=== PATIENT | female | born 1930 | race Caucasian/White ===

== ENCOUNTER 2018-01-09 01:13 | Inpatient (IN) | payer OTHER, MEDICARE ==
[~2018-01-09] VITALS: Ht 154.9 cm; Wt 56.7 kg
[~2018-01-09 01:13] MED LIST: ATIVAN1 M1 PO; BIOTIN5 M2 PO; CO Q-10200 MG PO; DIALYVITE TABL1 EACH PO; FISH OIL 1,2001 EAC2 PO; OCUVITE EYE +1 EACH PO; PHOSLYRA667 MG/51 PO; PROCRIT2000 UNIT/ PUSH
--- NOTE | 2018-01-09 01:20 | ED MVC/FALL/TRAUMA COMPLAINT ---
History of Present Illness General Chief Complaint: Hip Injury Stated Complaint: BIBA RIGHT HIP PAIN Source: patient Exam Limitations: no limitations Vital Signs & Intake/Output Vital Signs & Intake/Output Vital Signs Date Time Temp Pulse Resp B/P B/P Pulse O2 O2 Flow FiO2 Mean Ox Delivery Rate 01/09 0122 98.2 90 18 164/88 97 Room Air Allergies Coded Allergies: sorbitol (UNKNOWN REACTION 01/09/18) Reconcile Medications Biotin 5 MG TABLET 1 CAP PO DAILY SUPPLEMENT (Reported) Calcium Acetate (Phoslo) 667 MG CAPSULE 2 CAP PO TID SUPPLEMENT (Reported) Coenzyme Q10/Vitamin E (Co-Q-10 200 MG-1 Iu) 1 SGL SGL 1 CAP PO DAILY SUPPLEMENT (Reported) Cu/Se/Vit A/Vit C/Vit E/Zinc (Ocuvite) 1 TAB TAB 1 TAB PO DAILY SUPPLEMENT ( Reported) Epoetin Michael (Procrit) 2,000 UNIT/1 ML VIAL 2,200 U PUSH Sat DIALYSIS ( Reported) FOLIC ACID/VIT BCOMP,C (Dialyvite Tablet) 1 MG-100 MG TABLET 1 CAP PO DAILY SUPPLEMENT (Reported) Lorazepam (Ativan) 1 MG TAB 1 TAB PO TID ANXIETY (Reported) OMEGA-3 FATTY ACIDS/FISH OIL (Fish Oil 1,200 MG Softgel) 360 MG-1,200 MG CAPSULE 1 CAP PO QPM SUPPLEMENT (Reported) Triage Nurses Notes Reviewed? yes Onset: Abrupt Duration: hour(s): Timing: recent history Severity: moderate Injuries/Fall Location: lower extremity Method of Injury: fall Loss of Consciousness: no loss of consciousness Modifying Factors: Worsens With: movement, palpation. Associated Symptoms: right hip pain HPI: 87 yo woman on hemodialysis presents after a fall with right hip pain approximately 4 hours prior to arrival. Her daughter shares, "We were helping her sit down and she just missed the chair and fell... landed on her right hip." Her family was able to carry her up the hill on a lounge chair. She was unable to ambulate and noted right hip pain, and so presented to the ED for further evaluation. Of note, she did not hit her head. She did not lose consciousness. She had no chest pain, shortness of breath, dyspnea, diaphoresis. She is otherwise well. Past History Travel History Traveled to [place] past 21 day No Medical History Any Pertinent Medical History? see below for history Renal: ESRD on HD Surgical History Surgical History: right maira catheter Psychosocial History What is your primary language Chinese Family History Hx Contributory? No Review of Systems Review of Systems Constitutional: Reports: no symptoms. Eyes: Reports: no symptoms. Ears, Nose, Throat, Mouth: Reports: no symptoms. Respiratory: Reports: no symptoms. Cardiovascular: Reports: no symptoms. Gastrointestinal/Abdominal: Reports: no symptoms. Genitourinary: Reports: no symptoms. Musculoskeletal: Reports: no symptoms. Skin: Reports: no symptoms. Neurological/Psychological: Reports: no symptoms. All Other Systems: Reviewed and Negative Physical Exam Physical Exam General Appearance: well developed/nourished, mild distress Head: atraumatic, normal appearance Eyes: Bilateral: normal appearance. Ears, Nose, Throat, Mouth: hearing grossly normal, moist mucous membrane Neck: normal inspection, supple, full range of motion Respiratory: normal breath sounds, chest non-tender, no respiratory distress, quiet respiration, lungs clear Cardiovascular: regular rate/rhythm Gastrointestinal: normal bowel sounds Extremities: right hip flexed and slightly externally rotated. 2+distal pulse. right knee with mild effusion without tenderness/deformity. Neurologic/Psych: no motor/sensory deficits, awake, alert, oriented x 3 Skin: intact, normal color, warm/dry Core Measures ACS in differential dx? No CVA/TIA Diagnosis No Sepsis Present: No Sepsis Focused Exam Completed? No Progress Differential Diagnosis: ext injury Plan of Care: Orders Procedure Date/time Status Nothing by Mouth 01/09 B Active Saline Lock 01/09 327 Active Misc Message 01/09 327 Active ED Holding Orders 01/09 327 Active Admit to inpatient 01/09 032 Active Vital Signs 01/09 032 Active Code Status 01/09 032 Active Lowery, Insertion/Removal/Asses 01/09 0248 Active CULTURE,URINE 01/09 0248 Active URINALYSIS 01/09 0248 Active TROPONIN LEVEL 01/09 012 Complete PARTIAL THROMBOPLASTIN TIME 01/09 121 Complete PROTHROMBIN TIME 01/09 121 Complete LIPASE 01/09 121 Complete HEPATIC FUNCTION PANEL 01/09 121 Complete CBC WITHOUT DIFFERENTIAL 01/09 121 Complete BASIC METABOLIC PANEL 01/09 121 Complete AMYLASE 01/09 012 Complete EKG 01/09 121 Active TYPE & SCREEN (NOT X-MATCH) 01/09 012 Complete Laboratory Tests 01/09/18 0215: Anion Gap 16, Estimated GFR 15 L, BUN/Creatinine Ratio 3.4 L, Glucose 135 H, Calcium 10.0, Total Bilirubin 0.5, Direct Bilirubin 0.3, AST 13 L, ALT 29, Alkaline Phosphatase 187 H, Troponin I < 0.01, Total Protein 6.2 L, Albumin 4.0, Amylase 72, Lipase 277, PT 11.7, INR 1.07, APTT 27, CBC w Diff MAN DIFF ORDERED, RBC 3.69 L, MCV 95.7, MCH 32.0 H, MCHC 33.4, RDW 14.4, MPV 8.4, Gran % 88.7 H, Lymphocytes % 5.6 L, Monocytes % 5.2, Eosinophils % 0.2, Basophils % 0.3, Absolute Granulocytes 15.5 H, Segmented Neutrophils 85 H, Band Neutrophils 1, Absolute Lymphocytes 1.0 L, Lymphocytes 8 L, Monocytes 4, Absolute Monocytes 0.9 H, Absolute Eosinophils 0, Basophils 2, Absolute Basophils 0, Platelet Estimate ADEQUATE, Polychromasia 1+, Poikilocytosis 1+, Ovalocytes 1+, Stomatocytes FEW, Dary Cells RARE, Elliptocytes FEW, Fld Total RBCs Counted 100 Microbiology 01/10 248 URINE ROUT: Urine Culture - ORD Diagnostic Imaging: Viewed by Me: Radiology Read. Discussed w/RAD: Radiology Read. Radiology Impression: PATIENT: HOLLIE DHILLON PRESENT AGE: 87 PATIENT ACCOUNT NO: [id number] : [birth year] LOCATION: [facility] ORDERING PHYSICIAN: Dalton Vila MD SERVICE DATE: 01/09/18 EXAM TYPE: RAD - XRY-KNEE COMPLETE RIGHT EXAMINATION: XR KNEE, RIGHT CLINICAL INFORMATION: Fall. Swelling. COMPARISON: None TECHNIQUE: 2 lateral views of the right knee. FINDINGS: Due to the right hip fracture knee positioning was limited to lateral projection. No evidence of fracture or joint effusion of right knee IMPRESSION: Limited study. No fracture of the right knee. DICTATED BY: Ildefonso Berg MD DATE/TIME DICTATED:01/09/18227 DRUG ENFORCEMENT AGENT:BLAIR DATE/TIME TRANSCRIBED:01/09/18227 CONFIDENTIAL, DO NOT COPY WITHOUT APPROPRIATE AUTHORIZATION. <Electronically signed in Other Vendor System> SIGNED BY: Ildefonso Berg MD 01/09/18233, PATIENT: HOLLIE DHILLON PRESENT AGE: 87 PATIENT ACCOUNT NO: [id number] : [birth year] LOCATION: ER ORDERING PHYSICIAN: Dalton Vila MD SERVICE DATE: 01/09/18 EXAM TYPE: RAD - XRY-HIP 2-3 VIEWS, RIGHT EXAMINATION: XR HIP, RIGHT CLINICAL INFORMATION: Pain. Fall. COMPARISON: None TECHNIQUE: Two views of the right hip. FINDINGS: There is a comminuted intratrochanteric fracture of the right hip. Fracture is angulated and mildly displaced. Femoral head remains seated in the acetabulum. Surgical clips seen in the right side of the abdomen. IMPRESSION: Comminuted intratrochanteric fracture of the right hip. DICTATED BY: Ildefonso Berg MD DATE/TIME DICTATED:01/09/18229 DRUG ENFORCEMENT AGENT:BLAIR DATE/TIME TRANSCRIBED:01/09/18229 CONFIDENTIAL, DO NOT COPY WITHOUT APPROPRIATE AUTHORIZATION. <Electronically signed in Other Vendor System> SIGNED BY: Ildefonso Berg MD 01/09/18234, PATIENT: HOLLIE DHILLON PRESENT AGE: 87 PATIENT ACCOUNT NO: [id number] : [birth year] LOCATION: [facility] ORDERING PHYSICIAN: Dalton Vila MD SERVICE DATE: 01/09/18 EXAM TYPE: RAD - XRY-PORTABLE CHEST XRAY EXAMINATION: XR PORTABLE CHEST CLINICAL INFORMATION: Chest pain COMPARISON: None TECHNIQUE: Portable frontal view of the chest was obtained. 1:43 AM FINDINGS: Central port catheter tip at the caval atrial junction. Heart size is enlarged. There is mild increased lung markings but no significant vascular congestion. No focal consolidation or pleural effusion. Orthopedic plate and screw at lower cervical spine IMPRESSION: No acute abnormality of the chest. DICTATED BY: Ildefonso Berg MD DATE/TIME DICTATED: 01/09/18230 DRUG ENFORCEMENT AGENT:BLAIR DATE/TIME TRANSCRIBED:01/09/18230 CONFIDENTIAL, DO NOT COPY WITHOUT APPROPRIATE AUTHORIZATION. <Electronically signed in Other Vendor System> SIGNED BY: Ildefonso Berg MD 01/09/18235 Initial ED EKG: SINUS TACH, NO ACUTE CHANGES Departure Departure Disposition: STILL A PATIENT Condition: Stable Clinical Impression Primary Impression: Closed right hip fracture Secondary Impressions: ESRD (end stage renal disease) on dialysis Referrals: Denisse Demarco MD (PCP/Family) Departure Forms: Customer Survey General Discharge Information Comments 01/09/18, 3:08am... discussed with dr. jhaveri... PA to evaluate. Admission Note Spoke With: Ermias Conway MD Documentation of Exam: Documentation of any treatments & extenuating circumstances including Concerns Regarding Discharge (functional status, medication knowledge or non-compliance, living conditions, etc.) that warrant an admission rather than observation: Pt with comminuted right hip fracture, renal failure on hemodialysis.... will require surgery after medical optimization. Critical Care Note Critical Care Note Critical Care Time: 30-74 min
[2018-01-09 02:28] LABS: ABSOLUTE BASOPHIL COUNT 0 /CUMM (0.0-0.2); ABSOLUTE EOSINOPHIL COUNT 0 /CUMM (0.0-0.7); ABSOLUTE GRANULOCYTE CT 15.5 /CUMM (1.4-6.5); ABSOLUTE MONOCYTE COUNT 0.9 /CUMM (0.10-0.60); BASOPHIL % 0.3 % (0.0-2.0); EOSINOPHIL % 0.2 % (0-5); GRANULOCYTE % 88.7 % (42.2-75.2); HEMATOCRIT 35.3 % (37-47); MEAN CORPUSCULAR HGB CONC 33.4 G/DL (33.0-37.0); MEAN CORPUSCULAR VOLUME 95.7 FL (81.0-99.0); MEAN PLATELET VOLUME 8.4 FL (7.4-10.4); PLATELET COUNT 259 /CUMM (130-400); RBC DISTRIBUTION WIDTH 14.4 % (11.5-14.5); RED BLOOD CELL CT 3.69 /CUMM (4.20-5.40); WHITE BLOOD CELL COUNT 17.5 /CUMM (4.8-10.8)
--- NOTE | 2018-01-09 02:34 | RADIOLOGY REPORT ---
EXAMINATION: XR KNEE, RIGHT CLINICAL INFORMATION: Fall. Swelling. COMPARISON: None TECHNIQUE: 2 lateral views of the right knee. FINDINGS: Due to the right hip fracture knee positioning was limited to lateral projection. No evidence of fracture or joint effusion of right knee IMPRESSION: Limited study. No fracture of the right knee.
--- NOTE | 2018-01-09 02:35 | RADIOLOGY REPORT ---
EXAMINATION: XR HIP, RIGHT CLINICAL INFORMATION: Pain. Fall. COMPARISON: None TECHNIQUE: Two views of the right hip. FINDINGS: There is a comminuted intratrochanteric fracture of the right hip. Fracture is angulated and mildly displaced. Femoral head remains seated in the acetabulum. Surgical clips seen in the right side of the abdomen. IMPRESSION: Comminuted intratrochanteric fracture of the right hip.
[2018-01-09 02:36] LABS: PT 11.7 SEC (9.4-12.5); PTT 27 SEC (25-37)
--- NOTE | 2018-01-09 02:36 | RADIOLOGY REPORT ---
EXAMINATION: XR PORTABLE CHEST CLINICAL INFORMATION: Chest pain COMPARISON: None TECHNIQUE: Portable frontal view of the chest was obtained. 1:43 AM FINDINGS: Central port catheter tip at the caval atrial junction. Heart size is enlarged. There is mild increased lung markings but no significant vascular congestion. No focal consolidation or pleural effusion. Orthopedic plate and screw at lower cervical spine IMPRESSION: No acute abnormality of the chest.
--- NOTE | 2018-01-09 04:28 | History & Physical ---
Yasmine MIRANDA,[facility] 01/09/18 0428: General Information and HPI MD Statement: I have seen and personally examined HOLLIE DHILLON and documented this H&P. The patient is a 87 year old F who presented with a patient stated chief complaint of [Fall]. Source of Information: patient, family Exam Limitations: no limitations History of Present Illness: Ms. Dhillon 77-year-old lady with past medical history significant for anxiety, asthma, colon cancer status post resection, diverticulitis, nephrectomy(unsure if R or L), arthritis and end-stage renal disease on dialysis (M, W, F) presents after a fall. Per the patient, she went to see the [employer] today, she was trying to sit on the bench but somehow missed it and fell backwards on her hips, mainly on the right side. She was able to Get up with help and walk afterwards but had significant right-sided hip pain. Denies any loss of consciousness or hitting her head. Denies any chest pain, palpitations, lightheadedness or dizziness before the fall. She had her dialysis done yesterday. Allergies/Medications Allergies: Coded Allergies: sorbitol (UNKNOWN REACTION 01/09/18) Past History Travel History Traveled to [place] past 21 day No Medical History Neurological: NONE EENT: NONE Cardiovascular: NONE Respiratory: asthma Gastrointestinal: diverticulitis Hepatic: NONE Renal: ESRD on HD Musculoskeletal: falls, osteoarthritis Psychiatric: anxiety Endocrine: NONE Blood Disorders: NONE Cancer(s): colon/rectal cancer Surgical History Surgical History: right maira catheter Past Family/Social History Psychosocial History Where do you live? Home ETOH Use: denies use Illicit Drug Use: denies illicit drug use Review of Systems Review of Systems Constitutional: Reports: no symptoms. EENTM: Reports: no symptoms. Cardiovascular: Reports: no symptoms. Respiratory: Reports: no symptoms. GI: Reports: no symptoms. Genitourinary: Reports: no symptoms. Musculoskeletal: Reports: joint pain. Skin: Reports: no symptoms. Neurological/Psychological: Reports: no symptoms. Hematologic/Endocrine: Reports: no symptoms. Immunologic/Allergic: Reports: no symptoms. All Other Systems: Reviewed and Negative Exam & Diagnostic Data Last 24 Hrs of Vital Signs/I&O Vital Signs Date Time Temp Pulse Resp B/P B/P Pulse O2 O2 Flow FiO2 Mean Ox Delivery Rate 01/09 0439 97.4 105 18 157/74 97 Room Air 01/09 0333 98.0 95 18 160/78 97 Room Air 01/09 0122 98.2 90 18 164/88 97 Room Air Intake & Output 01/09 0800 01/09 0000 01/08 1600 Intake Total 50 Output Total Balance 50 Intake, IV 50 Patient 114 lb Weight Weight Reported by Patient Measurement Method Physical Exam General Appearance Alert, Oriented X3, Cooperative, Mild Distress, Moderate Distress Skin No Rashes, No Breakdown, Bruises around the right elbow and right pepe HEENT Atraumatic, PERRLA, EOMI, dry mucous membranes Cardiovascular Regular Rate, Normal S1, Normal S2 Lungs Normal Air Movement Abdomen Normal Bowel Sounds, Soft, No Tenderness Extremities No Clubbing, No Cyanosis, trace pedal edema, right lower ext flexed and internally rotated, severe pain with movement Last 24 Hrs of Labs/Kvng: Laboratory Tests 01/09/18 0215: Anion Gap 16, Estimated GFR 15 L, BUN/Creatinine Ratio 3.4 L, Glucose 135 H, Calcium 10.0, Total Bilirubin 0.5, Direct Bilirubin 0.3, AST 13 L, ALT 29, Alkaline Phosphatase 187 H, Troponin I < 0.01, Total Protein 6.2 L, Albumin 4.0, Amylase 72, Lipase 277, PT 11.7, INR 1.07, APTT 27, CBC w Diff MAN DIFF ORDERED, RBC 3.69 L, MCV 95.7, MCH 32.0 H, MCHC 33.4, RDW 14.4, MPV 8.4, Gran % 88.7 H, Lymphocytes % 5.6 L, Monocytes % 5.2, Eosinophils % 0.2, Basophils % 0.3, Absolute Granulocytes 15.5 H, Segmented Neutrophils 85 H, Band Neutrophils 1, Absolute Lymphocytes 1.0 L, Lymphocytes 8 L, Monocytes 4, Absolute Monocytes 0.9 H, Absolute Eosinophils 0, Basophils 2, Absolute Basophils 0, Platelet Estimate ADEQUATE, Polychromasia 1+, Poikilocytosis 1+, Ovalocytes 1+, Stomatocytes FEW, Dary Cells RARE, Elliptocytes FEW, Fld Total RBCs Counted 100 Microbiology 01/09 0440 URINE ROUT: Urine Culture - RECD Diagnostic Data CXR Results IMPRESSION: No acute abnormality of the chest. Other Results XRY-HIP 2-3 VIEWS, RIGHT IMPRESSION: Comminuted intratrochanteric fracture of the right hip. XRY-KNEE COMPLETE RIGHT IMPRESSION: Limited study. No fracture of the right knee. Assessment/Plan Assessment: Ms. Dhillon 77-year-old lady with past medical history significant for anxiety, asthma, colon cancer status post resection, diverticulitis, nephrectomy(unsure if R or L), arthritis and end-stage renal disease on dialysis (M, W, F) presents after a fall. Problem List; 1. Intratrochanteric fracture of the right hip. 2. Leukocytosis - unknown source 3. ESRD on dialysis 4. HX of Athma and Anxiety. - Admit the patient to general medicine floor - RCRI risk score of 1(Cr. > 2) with 0.9% risk of major cardiac event. Patient is at low risk of any major adverse events for this intermediate risk surgery. - NPO for Surgery in am. - Orthopedic Consult. - Pain Managment. - UA Positive, Follow up urine Cx. - Repeat CBC in am. - Continue Home medications. DVT Prophylaxis; ALPS Patient is Full Code. As Ranked By This Provider Problem List: 1. Closed right hip fracture Core Measures/Misc (03/24) Acute Coronary Syndrome ACS Diagnosis: No Congestive Heart Failure Congestive Heart Failure Diagnosis No Cerebrovascular Accident CVA/TIA Diagnosis: No VTE (View Protocol) VTE Risk Factors Age>40 No Mechanical VTE Prophylaxis d/t N/A MechProphylax Ordered No VTE Pharm Prophylaxis d/t Surgical Contraindication Sepsis (View protocol) Sepsis Present: No If YES complete Sepsis Event Note If YES complete Sepsis Event Note [facility] 01/09[facility]18 0514: General Information and HPI MD Statement: I have seen and personally examined HOLLIE DHILLON and documented this H&P. The patient is a 87 year old F who presented with a patient stated chief complaint of [Fall/fracture]. Source of Information: patient, family Exam Limitations: no limitations Allergies/Medications Home Med list Biotin 5 MG TABLET 1 CAP PO DAILY SUPPLEMENT (Reported) Budesonide/Formoterol Fumarate (Symbicort 80-4.5 Mcg Inhaler) 80 MCG-4.5 MCG/ ACTUATION HFA.AER.AD 2 PUF INH BID asthma (Reported) Calcium Acetate (Phoslo) 667 MG CAPSULE 2 CAP PO TID SUPPLEMENT (Reported) Coenzyme Q10/Vitamin E (Co-Q-10 200 MG-1 Iu) 1 SGL SGL 1 CAP PO DAILY SUPPLEMENT (Reported) Cu/Se/Vit A/Vit C/Vit E/Zinc (Ocuvite) 1 TAB TAB 1 TAB PO DAILY SUPPLEMENT ( Reported) Epoetin Michael (Procrit) 2,000 UNIT/1 ML VIAL 2,200 U PUSH MON SAT DIALYSIS ( Reported) FOLIC ACID/VIT BCOMP,C (Dialyvite Tablet) 1 MG-100 MG TABLET 1 CAP PO DAILY SUPPLEMENT (Reported) Lorazepam (Ativan) 1 MG TAB 1 TAB PO TID ANXIETY (Reported) OMEGA-3 FATTY ACIDS/FISH OIL (Fish Oil 1,200 MG Softgel) 360 MG-1,200 MG CAPSULE 1 CAP PO QPM SUPPLEMENT (Reported) Past Family/Social History Employment History Employment Retired Exam & Diagnostic Data Last 24 Hrs of Vital Signs/I&O Vital Signs Date Time Temp Pulse Resp B/P B/P Pulse O2 O2 Flow FiO2 Mean Ox Delivery Rate 01/09 0439 97.4 105 18 157/74 97 Room Air 01/09 0333 98.0 95 18 160/78 97 Room Air 01/09 0122 98.2 90 18 164/88 97 Room Air Intake & Output 01/09 0800 07/ 0000 01/08 1600 Intake Total 50 Output Total Balance 50 Intake, IV 50 Patient 114 lb Weight Weight Reported by Patient Measurement Method Physical Exam General Appearance Alert, Oriented X3, Cooperative, No Acute Distress Skin No Rashes, No Breakdown HEENT Atraumatic, PERRLA, EOMI Cardiovascular Regular Rate, Normal S1, Normal S2 Lungs Clear to Auscultation, Normal Air Movement Abdomen Normal Bowel Sounds, Soft, No Tenderness Extremities No Clubbing, No Cyanosis, trace pedal edema, right lower ext flexed and internally rotated, severe pain with movement Last 24 Hrs of Labs/Kvng: Laboratory Tests 01/09/18 0215: Anion Gap 16, Estimated GFR 15 L, BUN/Creatinine Ratio 3.4 L, Glucose 135 H, Calcium 10.0, Total Bilirubin 0.5, Direct Bilirubin 0.3, AST 13 L, ALT 29, Alkaline Phosphatase 187 H, Troponin I < 0.01, Total Protein 6.2 L, Albumin 4.0, Amylase 72, Lipase 277, PT 11.7, INR 1.07, APTT 27, CBC w Diff MAN DIFF ORDERED, RBC 3.69 L, MCV 95.7, MCH 32.0 H, MCHC 33.4, RDW 14.4, MPV 8.4, Gran % 88.7 H, Lymphocytes % 5.6 L, Monocytes % 5.2, Eosinophils % 0.2, Basophils % 0.3, Absolute Granulocytes 15.5 H, Segmented Neutrophils 85 H, Band Neutrophils 1, Absolute Lymphocytes 1.0 L, Lymphocytes 8 L, Monocytes 4, Absolute Monocytes 0.9 H, Absolute Eosinophils 0, Basophils 2, Absolute Basophils 0, Platelet Estimate ADEQUATE, Polychromasia 1+, Poikilocytosis 1+, Ovalocytes 1+, Stomatocytes FEW, Dary Cells RARE, Elliptocytes FEW, Fld Total RBCs Counted 100 Microbiology 01/09 0440 URINE ROUT: Urine Culture - RECD Core Measures/Misc (03/24) Sepsis (View protocol) If YES complete Sepsis Event Note If YES complete Sepsis Event Note Attending MD Review Statement Attending Statement Attending MD Statement: examined this patient, discuss w/resident/PA/ENGINEERING LIBRARIAN, agreed w/resident/PA/ENGINEERING LIBRARIAN Attending Assessment/Plan: This patient is a 77-year-old lady with past medical history significant for anxiety, asthma, colon cancer status post resection, diverticulitis, nephrectomy (unsure if R or L), arthritis and end-stage renal disease on dialysis (M, W, F) presents after a fall. RCRI risk score of 1(Cr. > 2) with 0.9% risk of major cardiac event. Patient is at low risk of any major adverse events for this intermediate risk eurgery. NPO for ppossible Surgery in am. Pain Managment. Continue Home medications. Agree with Residents assesment and plan
--- NOTE | 2018-01-09 04:34 | Cons- Orthopedic ---
Mickie Yin 01/09/18 0434: General Information and HPI Consulting Request Date of Consult: 01/09/18 Requested By: Ermias Conway MD Reason for Consult: right hip fracture sp fall History of Present Illness: 87yoF presents to ED BIBA c/o right hip pain. Per pt, she was watching 01/08 fireworks [place] with family and fell while walking from the boat on the dock. She was unable to get up, but helped by family to get back into the house. Denies head injury/loc, no cp/palps/sob at time of fall. She does use a cane at baseline. She denies any complaints at this time other than right hip pain. Does note chronic right knee pain due to OA, though unchanged since fall. Of note, she is very functional and independent. She lives alone, goes up and down stairs in her home, and does not have any visiting help to her home other than occasonal family. She does not drive, instead uses uber and medical van to HD. PMHx includes ESRD on HD M/W/F, most recent HD yesterday. Allergies/Medications Allergies: Coded Allergies: sorbitol (UNKNOWN REACTION 01/09/18) Past History Medical History Respiratory: asthma Gastrointestinal: diverticulitis Renal: ESRD on HD Musculoskeletal: osteoarthritis Psychiatric: anxiety Cancer(s): colon/rectal cancer Surgical History Pertinent Surgical History: right maira catheter 2011, c-spine instrumentation, 2006 partial colectomy for colon ca 2002, nephrectomy at 43yo Psychosocial History Where Do You Live? Home Who Do You Live With? 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 Exam & Diagnostic Data Vital Signs and I&O Vital Signs Date Time Temp Pulse Resp B/P B/P Pulse O2 O2 Flow FiO2 Mean Ox Delivery Rate 01/09 439 97.4 105 18 157/74 97 Room Air 01/09 0333 98.0 95 18 160/78 97 Room Air 01/09 0122 98.2 90 18 164/88 97 Room Air Intake & Output 01/09 0801/09 0000 01/08 1600 01/08 0801/08 0000 01/07 1600 Intake Total 50 Output Total Balance 50 Intake, IV 50 Patient 114 lb Weight Weight Reported by Patient Measurement Method Physical Exam: GEN- NAD CARD-s1s2 RRR PULM- CTAB ABD- soft nt, easily reducible nontender ventral hernia superior to umbilicus EXT- r lateral hip ttp, skin intact, no ecchymosis, rle shortened and esternally rotated, r knee fixed in semiflexed position, some ecchymosis r pepe. palp pedal pulses, feel warm. bl toes with deformities. calves soft nt bl Last 24 Hours of Labs: Laboratory Tests 01/09 0215 Chemistry Sodium (137 - 145 mmol/L) 140 Potassium (3.5 - 5.1 mmol/L) 3.7 Chloride (98 - 107 mmol/L) 101 Carbon Dioxide (22 - 30 mmol/L) 23 Anion Gap (5 - 16) 16 BUN (7 - 17 mg/dL) 10 Creatinine (0.5 - 1.0 mg/dL) 2.9 H Estimated GFR (>60 ml/min) 15 L BUN/Creatinine Ratio (7 - 25 %) 3.4 L Glucose (65 - 99 mg/dL) 135 H Calcium (8.4 - 10.2 mg/dL) 10.0 Total Bilirubin (0.2 - 1.3 mg/dL) 0.5 Direct Bilirubin (< 0.4 mg/dL) 0.3 AST (14 - 36 U/L) 13 L ALT (9 - 52 U/L) 29 Alkaline Phosphatase (<127 U/L) 187 H Troponin I (< 0.11 ng/ml) < 0.01 Total Protein (6.3 - 8.2 g/dL) 6.2 L Albumin (3.5 - 5.0 g/dL) 4.0 Amylase (30 - 110 U/L) 72 Lipase (23 - 300 U/L) 277 Coagulation PT (9.4 - 12.5 SEC) 11.7 INR (0.90 - 1.19) 1.07 APTT (25 - 37 SEC) 27 Hematology CBC w Diff MAN DIFF ORDERED WBC (4.8 - 10.8 /CUMM) 17.5 H RBC (4.20 - 5.40 /CUMM) 3.69 L Hgb (12.0 - 16.0 G/DL) 11.8 L Hct (37 - 47 %) 35.3 L MCV (81.0 - 99.0 FL) 95.7 MCH (27.0 - 31.0 PG) 32.0 H MCHC (33.0 - 37.0 G/DL) 33.4 RDW (11.5 - 14.5 %) 14.4 Plt Count (130 - 400 /CUMM) 259 MPV (7.4 - 10.4 FL) 8.4 Gran % (42.2 - 75.2 %) 88.7 H Lymphocytes % (20.5 - 51.1 %) 5.6 L Monocytes % (1.7 - 9.3 %) 5.2 Eosinophils % (0 - 5 %) 0.2 Basophils % (0.0 - 2.0 %) 0.3 Absolute Granulocytes (1.4 - 6.5 /CUMM) 15.5 H Segmented Neutrophils (42.2 - 75.2 %) 85 H Band Neutrophils (0.0 - 5.0 %) 1 Absolute Lymphocytes (1.2 - 3.4 /CUMM) 1.0 L Lymphocytes (20.5 - 51.1 %) 8 L Monocytes (1.7 - 9.3 %) 4 Absolute Monocytes (0.10 - 0.60 /CUMM) 0.9 H Absolute Eosinophils (0.0 - 0.7 /CUMM) 0 Basophils (0.0 - 2.0 %) 2 Absolute Basophils (0.0 - 0.2 /CUMM) 0 Platelet Estimate (ADEQUATE) ADEQUATE Polychromasia 1+ Poikilocytosis 1+ Ovalocytes 1+ Stomatocytes FEW Dary Cells RARE Elliptocytes FEW Other Body Source Fld Total RBCs Counted (%) 100 Imaging Results: CXR: no acute abnormalities R Hip Xray: comminuted intratrochanteric fracture of the right hip. Fracture is angulated and mildly displaced. Femoral head remains seated in the acetabulum. R knee XRay: limited study. No evidence of fracture or joint effusion of right knee Assessment/Plan Assessment/Plan A- 87F with R comminuted intratrochanteric fracture, with multiple comorbidities including ESRD on HD, otherwise stable. P- requires surgical intervention when medically optimized/cleared. Keep npo. Dr. French to see pt Consult Acknowledgment - Thank you for your consult request. Manolo MIRANDA,Eldon Aguilar 01/09/182051: General Information and HPI Allergies/Medications Home Med List: Biotin 5 MG TABLET 1 TAB PO DAILY SUPPLEMENT (Reported) Budesonide/Formoterol Fumarate (Symbicort 80-4.5 Mcg Inhaler) 80 MCG-4.5 MCG/ ACTUATION HFA.AER.AD 2 PUF INH BID asthma (Reported) Calcium Acetate (Phoslyra) 667 MG (169 MG CALCIUM)/5 ML SOLUTION 2 CAP PO TID SUPPLEMENT (Reported) Epoetin Michael (Procrit) 2,000 UNIT/ML VIAL 2,200 UNITS PUSH MoWe DIALYSIS ( Reported) Folic Acid/Vit Bcomp,C (Dialyvite Tablet) 1 MG-100 MG TABLET 1 TAB PO DAILY VITAMIN SUPPORT (Reported) LORazepam (Ativan) 1 MG TAB 1 TAB PO TID ANXIETY (Reported) Mv-Mn/FA/Vit K1/Lycop/Lut/Zeax (Ocuvite Eye + Multi Tablet) 200 MCG-15 MCG-150 MCG-5 MG-1 MG TABLET 1 TAB PO DAILY EYE (Reported) [place]-3S/Dha/Epa/Fish Oil (Fish Oil 1,200 MG Softgel) 360-1,200MG CAPSULE 1 CAP PO QPM SUPPLEMENT (Reported) Ubidecarenone (Co Q-10) 200 MG CAPSULE 1 CAP PO DAILY SUPPLEMENT (Reported) Assessment/Plan Consult Acknowledgment - Thank you for your consult request. Attending MD Review Statement Attending Statement Attending MD Statement: examined this patient, discuss w/resident/PA/TUCKPOINTER, agreed w/resident/PA/TUCKPOINTER, discussed with family, reviewed EMR data (avail), reviewed images Attending Assessment/Plan: Sasha Bailey is an 87 year old white female with chronic renal failure on tiw hemodialysis who fell last night and landed on her right side resulting in a high subtrochanteric femur fracture with displacement. She is a cane ambulator at baseline who lives alone but has family nearby. I concur with the history and physical examination findings and agree with the assessment documented here by Mickie Nicholas PA-C. The patient will best be treated using closed reduction under fluoroscopic guidance and minimally invasive open internal fixation with short cephalomedullary implant fixation implant and as soon as she can be cleared by the primary admitting medicine team. She is at intermediate to high risk given her age and comorbid medical conditions particularly including renal failure and this will be reviewed with the patient and family when consent is obtained prior to surgery. Patient will remain NPO after admission since it appears quite possible that she can be cleared and that her surgery can be done on an expedited basis.
[2018-01-09] MEDS ORDERED: SYMBICORT 80-10.2 GM INH (04:50)
[2018-01-09 05:55] VITALS: BP 142/86
--- NOTE | 2018-01-09 07:36 | PN- Housestaff ---
See Addendum Subjective Follow-up For: hip fracture Complaints: sleepless Subjective: Patient was seen and examined at bedside, just returned from surgery, patient was irritable saying she would like to get some sleep and is tired of people constantly, and through the her door. Review of Systems Constitutional: Denies: chills, diaphoresis, fever. Cardiovascular: Denies: chest pain, palpitations. Respiratory: Denies: cough, short of breath. Objective Last 24 Hrs of Vital Signs/I&O Vital Signs Date Time Temp Pulse Resp B/P B/P Pulse O2 O2 Flow FiO2 Mean Ox Delivery Rate 01/09 1324 97.6 90 20 116/66 99 Nasal 2.0L Cannula 01/09 0555 97.6 108 20 142/86 98 Room Air 01/09 0439 97.4 105 18 157/74 97 Room Air 01/09 0333 98.0 95 18 160/78 97 Room Air 01/09 0122 98.2 90 18 164/88 97 Room Air Intake & Output 01/09 1600 01/09 0800 01/09 0000 Intake Total 130 50 Output Total 100 Balance 130 -50 Intake, IV 130 50 Intake, Oral 0 Number 0 Bowel Movements Output, 100 Emesis Patient 110 lb Weight Weight Bed scale Measurement Method Physical Exam General Appearance: Alert, Oriented X3, Mild Distress Skin: No Rashes, Eccymoses on right eblow HEENT: Atraumatic, PERRLA, EOMI Neck: Supple, No LAD Cardiovascular: Regular Rate, Normal S1, Normal S2, Port Cath present on right chest, no erythema, tenderness or warmth present Lungs: Clear to Auscultation, Normal Air Movement Abdomen: Normal Bowel Sounds, Soft, No Tenderness Extremities: No Edema, Normal Pulses, No Tenderness/Swelling, Right hip covered, tender to touch Assessment/Plan Assessment: Ms. Bailey 77-year-old lady with past medical history significant for anxiety, asthma, colon cancer status post resection, diverticulitis, nephrectomy, arthritis and end-stage renal disease on dialysis (M, W, F) presents after sustaining a fall on 01/08/18. Patient underwent R. Hip ORIF with Dr. French. #R. Hip fracture s/o ORIF POD #0 R. Hip Xray on 01/09/18 showing comminuted intratrochanteric fracture of the right hip. Fracture is angulated and mildly displaced plan: Underwent ORIF with Dr. French #Leukocytosis WBC = 17.5. Source unclear most likely related to fall, afebrile, does not take steroids, no signs of infectiong plan: - Repeat CBC - urine culture pending #ESRD patient is on dialysis M,W,F. Teaching Young = 2.9. GFR = 15, severe CKD plan: -nephrology consult -Dialysis on Saturday Problem List: 1. Closed right hip fracture Pain Ratin Pain Location: Right hip Pain Goal: Pain 4 or less Pain Plan: Tylenol Tomorrow's Labs & Rationales: CBC
[2018-01-09 13:24] VITALS: BP 116/66
--- NOTE | 2018-01-09 14:51 | RADIOLOGY REPORT ---
EXAMINATION: CR RIGHT HIP/INTRAOPERATIVE FLUOROSCOPY CLINICAL INDICATION: Right hip fracture repair. COMPARISON: Right hip films dated 01/09/2018. TECHNIQUE/FINDINGS: Fluoroscopic equipment was dedicated to the operating room for the performance of an intraoperative procedure. Several (70) spot films were acquired and are archived in PACS. Please refer to operative notes for procedural detail. FLUOROSCOPY TIME: 2.1 minutes. IMPRESSION: Administrative dictation for intraoperative fluoroscopy and image archiving in PACS. Please refer to operative notes for details.
--- NOTE | 2018-01-09 16:15 | PN- Orthopedic ---
Subjective Subjective: Post op check Awake, alert No complaints at this time No pain, denies nausea, has not been oob Objective Vital Signs and I&Os Vital Signs Date Time Temp Pulse Resp B/P B/P Pulse O2 O2 Flow FiO2 Mean Ox Delivery Rate 01/09 1324 97.6 90 20 116/66 99 Nasal 2.0L Cannula 01/09 0555 97.6 108 20 142/86 98 Room Air 01/09 0439 97.4 105 18 157/74 97 Room Air 01/09 0333 98.0 95 18 160/78 97 Room Air 01/09 0122 98.2 90 18 164/88 97 Room Air Intake & Output 01/09 1600 01/09 0800 01/09 0000 01/08 1600 01/08 0800 01/08 0000 Intake Total 50 Output Total 100 Balance -50 Intake, IV 50 Output, 100 Emesis Patient 110 lb Weight Weight Bed scale Measurement Method Physical Exam: General; alert and oriented times three Ext: warm, no edema, normosensate BLE, good 5/5 MAYNOR at bilateral feet, no calf tenderness, ALPS in place Wd: dressed, dry Assessment/Plan Assessment/Plan 87yo female s/p L hip ORIF PT - WBAT no anticoagulation needed from a surgical standpoint per Dr French, any anticoagulation is for other reasons per the medical team dc planning - likely will need STR ALPS
--- NOTE | 2018-01-09 17:39 | Cons- Nephrology ---
General Information and HPI Consulting Request Date of Consult: 01/09/18 Requested By: Gregor Myers MD Reason for Consult: Eval/managemen of ESRD Source of Information: patient, family, old records Exam Limitations: no limitations History of Present Illness: Pleasant 87-year-old female with a history of end-stage renal disease, for which is on hemodialysis on a Saturday schedule at the [facility]. Yesterday on January 08, she accidentally tripped while attempting to sit on a bench on the docks while watching the fireworks; she subsequently fell on her hips, and was diagnosed with a right hip fracture. She status post ORIF today . She was last dialyzed yesterday at the [facility]. Of note she lives by herself at home and [place] and has a son who lives in [place] who is with her at the bedside. She is dialyzed via an Mike catheter as she declined having an AV fistula created which was her choice. Allergies/Medications Allergies: Coded Allergies: sorbitol (UNKNOWN REACTION 01/09/18) Home Med List: Biotin 5 MG TABLET 1 TAB PO DAILY SUPPLEMENT (Reported) Budesonide/Formoterol Fumarate (Symbicort 80-4.5 Mcg Inhaler) 80 MCG-4.5 MCG/ ACTUATION HFA.AER.AD 2 PUF INH BID asthma (Reported) Calcium Acetate (Phoslyra) 667 MG (169 MG CALCIUM)/5 ML SOLUTION 2 CAP PO TID SUPPLEMENT (Reported) Epoetin Michael (Procrit) 2,000 UNIT/ML VIAL 2,200 UNITS PUSH MoWe DIALYSIS ( Reported) Folic Acid/Vit Bcomp,C (Dialyvite Tablet) 1 MG-100 MG TABLET 1 TAB PO DAILY VITAMIN SUPPORT (Reported) LORazepam (Ativan) 1 MG TAB 1 TAB PO TID ANXIETY (Reported) Mv-Mn/FA/Vit K1/Lycop/Lut/Zeax (Ocuvite Eye + Multi Tablet) 200 MCG-15 MCG-150 MCG-5 MG-1 MG TABLET 1 TAB PO DAILY EYE (Reported) [place]-3S/Dha/Epa/Fish Oil (Fish Oil 1,200 MG Softgel) 360-1,200MG CAPSULE 1 CAP PO QPM SUPPLEMENT (Reported) Ubidecarenone (Co Q-10) 200 MG CAPSULE 1 CAP PO DAILY SUPPLEMENT (Reported) Current Medications: Current Medications Sig/Nuris Start time Last Medication Dose Route Stop Time Status Admin Acetaminophen 1,000 MG .STK-MED ONE 01/09 1528 DC IV 01/09 1529 Acetaminophen 1,000 MG Q8 01/09 1400 AC 01/09 N/A 1 UNIT IV 01/10 1414 1445 Budesonide/ 2 PUF BID 01/09 0900 AC Formoterol Fumarate INH Calcium Acetate 1,334 MG WITH MEALS 01/09 0800 AC PO Fentanyl Citrate 250 MCG .STK-MED ONE 01/09 0750 DC IM 01/09 0751 Hydromorphone HCl 0.4 MG ONCE ONE 01/09 0600 DC 01/09 IV 01/09 0601 0556 Lorazepam 1 MG TID PRN 01/09 0445 AC 01/09 PO 0556 Morphine Sulfate 0 .STK-MED ONE 01/09 0451 DC .ROUTE Morphine Sulfate 2 MG Q4P PRN 01/09 0430 AC 01/09 IV 0458 Morphine Sulfate 2 MG ONCE ONE 01/09 0300 DC 01/09 IV 01/09 0301 0256 Morphine Sulfate 0 .STK-MED ONE 01/09 0248 DC .ROUTE Ondansetron HCl 4 MG .STK-MED ONE 01/09 1528 DC IV 01/09 1529 Ondansetron HCl 4 MG ONCE ONE 01/09 0615 CAN IV 01/09 0616 Pantoprazole Sodium 40 MG BID 01/09 0915 AC 01/09 IV 1444 Trimethobenzamide HCl 200 MG .STK-MED ONE 01/09 1529 DC IM 01/09 1530 Trimethobenzamide HCl 200 MG 4 TIMES/DAY PRN 01/09 0915 AC IM Trimethobenzamide HCl 200 MG ONCE ONE 01/09 0615 DC 01/09 IM 01/09 0616 0630 Review of Systems Review of Systems: Gen: neg fever, chills, nightsweats, wt loss Skin: neg rash, pruritus Eye: neg visual changes, diplopia ENT: neg hearing changes, rhinitus CV: neg CP, SOB, GARCIA, PND, orthopnea Pulm: neg cough, sputum, hemoptysis GI: neg nausea, vomiting, diarrhea, abdominal pain, hematemesis, BRBPR : neg dysuria, frequency, urgency, hematuria, foamy urine, nocturia Musculoskeletal: neg myalgias, arthralgias Denies hip pain currently Neuro: neg weakness, numbness Psych: neg depression, mental status changes Heme: neg bruising, easy bleeding, clots Past History Travel History Traveled to [place] past 21 day No Medical History Blood Transfusion Hx: No Neurological: NONE EENT: NONE Cardiovascular: HYPOTENSION Respiratory: asthma Gastrointestinal: diverticulitis Hepatic: NONE Renal: ESRD on HD Musculoskeletal: osteoarthritis Psychiatric: anxiety Endocrine: NONE Blood Disorders: NONE Cancer(s): colon/rectal cancer 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 Home Who Do You Live With? 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 Exam & Diagnostic Data Vital Signs and I&O Vital Signs Date Time Temp Pulse Resp B/P B/P Pulse O2 O2 Flow FiO2 Mean Ox Delivery Rate 01/09 1324 97.6 90 20 116/66 99 Nasal 2.0L Cannula 01/09 0555 97.6 108 20 142/86 98 Room Air 01/09 0439 97.4 105 18 157/74 97 Room Air 01/09 0333 98.0 95 18 160/78 97 Room Air 01/09 0122 98.2 90 18 164/88 97 Room Air Intake & Output 01/09 1600 05 0400 01/08 1600 01/08 0400 01/07 1600 01/07 0400 Intake Total 130 50 Output Total 100 Balance 30 50 Intake, IV 130 50 Intake, Oral 0 Number 0 Bowel Movements Output, 100 Emesis Patient 110 lb 114 lb Weight Weight Bed scale Reported by Patient Measurement Method Physical Exam: General: NAD, A+O x3. HEENT: NC/AT. No icterus. Moist mucosa Neck: negative for CHANO, JVD CV: RRR, no m/r/g Pulm: CTAB, no rales Abd: soft, NT/ND, negative renal bruits Lower Ext: neg edema or chronic venous changes Upper Ext: no AVFs or AVGs chest +MIKE cath Back: negative for CVA tenderness Neuro: neg tremor, asterixis Skin: no rash, jaundice : + mott catheter Results Pertinent Lab Results: Laboratory Tests 01/09 215 Chemistry Sodium (137 - 145 mmol/L) 140 Potassium (3.5 - 5.1 mmol/L) 3.7 Chloride (98 - 107 mmol/L) 101 Carbon Dioxide (22 - 30 mmol/L) 23 Anion Gap (5 - 16) 16 BUN (7 - 17 mg/dL) 10 Creatinine (0.5 - 1.0 mg/dL) 2.9 H Estimated GFR (>60 ml/min) 15 L BUN/Creatinine Ratio (7 - 25 %) 3.4 L Glucose (65 - 99 mg/dL) 135 H Calcium (8.4 - 10.2 mg/dL) 10.0 Total Bilirubin (0.2 - 1.3 mg/dL) 0.5 Direct Bilirubin (< 0.4 mg/dL) 0.3 AST (14 - 36 U/L) 13 L ALT (9 - 52 U/L) 29 Alkaline Phosphatase (<127 U/L) 187 H Troponin I (< 0.11 ng/ml) < 0.01 Total Protein (6.3 - 8.2 g/dL) 6.2 L Albumin (3.5 - 5.0 g/dL) 4.0 Amylase (30 - 110 U/L) 72 Lipase (23 - 300 U/L) 277 Coagulation PT (9.4 - 12.5 SEC) 11.7 INR (0.90 - 1.19) 1.07 APTT (25 - 37 SEC) 27 Hematology CBC w Diff MAN DIFF ORDERED WBC (4.8 - 10.8 /CUMM) 17.5 H RBC (4.20 - 5.40 /CUMM) 3.69 L Hgb (12.0 - 16.0 G/DL) 11.8 L Hct (37 - 47 %) 35.3 L MCV (81.0 - 99.0 FL) 95.7 MCH (27.0 - 31.0 PG) 32.0 H MCHC (33.0 - 37.0 G/DL) 33.4 RDW (11.5 - 14.5 %) 14.4 Plt Count (130 - 400 /CUMM) 259 MPV (7.4 - 10.4 FL) 8.4 Gran % (42.2 - 75.2 %) 88.7 H Lymphocytes % (20.5 - 51.1 %) 5.6 L Monocytes % (1.7 - 9.3 %) 5.2 Eosinophils % (0 - 5 %) 0.2 Basophils % (0.0 - 2.0 %) 0.3 Absolute Granulocytes (1.4 - 6.5 /CUMM) 15.5 H Segmented Neutrophils (42.2 - 75.2 %) 85 H Band Neutrophils (0.0 - 5.0 %) 1 Absolute Lymphocytes (1.2 - 3.4 /CUMM) 1.0 L Lymphocytes (20.5 - 51.1 %) 8 L Monocytes (1.7 - 9.3 %) 4 Absolute Monocytes (0.10 - 0.60 /CUMM) 0.9 H Absolute Eosinophils (0.0 - 0.7 /CUMM) 0 Basophils (0.0 - 2.0 %) 2 Absolute Basophils (0.0 - 0.2 /CUMM) 0 Platelet Estimate (ADEQUATE) ADEQUATE Polychromasia 1+ Poikilocytosis 1+ Ovalocytes 1+ Stomatocytes FEW Dary Cells RARE Elliptocytes FEW Other Body Source Fld Total RBCs Counted (%) 100 Assessment/Plan Assessment/Recommendations Assessment: End-stage renal disease: Stable from a renal standpoint. I will schedule her for routine dialysis tomorrow according to her Saturday schedule. She is dialyzed via an Mike catheter chronically which we will use for dialysis tomorrow. If the patient and her son elect for her to go to short-term rehabilitation in the [facility] area then she may need a temporary outpatient dialysis at the [facility]; would involve the case management. Recommendations: Dialysis scheduled for tomorrow in the hospital Would DC Mott catheter as she is oligoanuric Case management involvement tomorrow regarding discharge planning Thank you for the consult Kendrick Jang MD
[2018-01-09 19:39] LABS: ABSOLUTE BASOPHIL COUNT 0 /CUMM (0.0-0.2); ABSOLUTE EOSINOPHIL COUNT 0 /CUMM (0.0-0.7); ABSOLUTE GRANULOCYTE CT 10.9 /CUMM (1.4-6.5); ABSOLUTE LYMPH COUNT 0.6 /CUMM (1.2-3.4); ABSOLUTE MONOCYTE COUNT 0.7 /CUMM (0.10-0.60); BASOPHIL % 0.1 % (0.0-2.0); EOSINOPHIL % 0 % (0-5); HEMATOCRIT 30.5 % (37-47); MEAN CORPUSCULAR HGB 31.8 PG (27.0-31.0); MEAN CORPUSCULAR HGB CONC 33.3 G/DL (33.0-37.0); MEAN CORPUSCULAR VOLUME 95.3 FL (81.0-99.0); MEAN PLATELET VOLUME 8.8 FL (7.4-10.4); PLATELET COUNT 211 /CUMM (130-400); RBC DISTRIBUTION WIDTH 14.1 % (11.5-14.5); RED BLOOD CELL CT 3.21 /CUMM (4.20-5.40); WHITE BLOOD CELL COUNT 12.2 /CUMM (4.8-10.8)
[2018-01-09 19:43] LABS: GRANULOCYTE % 89.6 % (42.2-75.2)
--- NOTE | 2018-01-09 21:15 | Operative Report ---
Operative/Inv Procedure Report Surgery Date: 01/09/18 Name of Procedure: 1) Right Hip Region Intertrochanteric And High Subtrochanteric Fracture Open Reduction And Cephalomedullary Implant Internal Fixation (Manolo) 2) Right Hip Region Intraoperative Fluoroscopic Assessment Of Intertrochanteric And High Subtrochanteric Initial And Final Reduced Fracture Alignment And Stability As Well As Final Fracture Cephalomedullary (CM) Device Fixation (Manolo) Pre-Operative Diagnosis: Primary Surgically Treated Diagnoses: 1) Right Hip Moderately Displaced Intertrochanteric And High Subtrochanteric Fracture Post-Operative Diagnosis: Same as preoperative diagnosis list with the addition of standard postoperative symptomatic diagnoses Estimated Blood Loss: less than 50ml Surgeon/Electronics Repair Technician: EDI FRENCH MD - Primary Consulting Orthopaedic Surgeon Surgical Providers: Edi French M.D. - Orthopaedic Surgeon Anesthesia: general endotracheal tube Monitors: Standard general anesthesia and other perioperative monitoring was performed per anesthesia. Refer to anesthesia records for details. IV Fluids: Standard anesthesia perioperative fluid management was performed without requirement for additional or emergent fluid resuscitation. Refer to anesthesia records for details. Implants: Implants Placed: Right Hip And Proximal Femur Region Implants: [place] Gamma 3 Cephalomedullary Titanium Alloy Fracture Fixation System: Gamma 3 System Short Cephalomedullary Nail 11 mm diameter x 180 mm length x 130 degree cervicodiaphyseal angle cephalomedullary nail Gamma 3 System 10.5 mm x 100 mm Cepalad Fixation Lag Screw Gamma 3 System 5.0 mm x 35 mm Fully Threaded Distal Nail Proximal Round Transfixion Hole Bicortical Locking Screw Graft Placed: None Urine Output: Refer to anesthesia records for details. Drains: None Specimens: None Complications: None Operative/Procedure Note Note: Preoperative Holding Area Assessment/Preparation: The patient was evaluated in the preoperative holding area prior to surgery with no clinical changes or contraindications to surgical intervention documented compared to the stable postinjury and preoperative baseline deficits localized to the right hip and proximal lower extremity related to her high subtrochanteric fracture as documented on preoperative medical admission and orthopaedic consultation general medical, neurovascular and musculoskeletal clearance evaluations. Evaluation of her right hip and, to a lesser degree, the rest of her right lower extremity range of motion and other neuromusculoskeletal functions were obviously partially limited due to pain, instability and potential displacement of her fracture. The surgical plan and site were confirmed with the patient and preoperative paperwork was finalized. The region of the intended surgical site was cleansed, prepped and marked per protocol. The primary surgeon, anesthesia care team members, and operating room staff confirmed the patient identity, surgical procedure, and operative site as well as other clinical details with the patient in an initial documented preoperative confirmation (awake time out) prior to the administration of sedation or anesthesia. Surgical Procedure: The procedure was performed by Dr. French who was present and served as the primary surgeon for all critical intraoperative and perioperative decisions and interventions. Set-Up/Positioning/Exposure - The patient was brought to the operating room in stable condition and underwent uncomplicated induction of general anesthesia, intubation and placement of all appropriate monitors, lines, tubes and catheters without difficulty. Antibiotic administration (Ancef 2 grams IV based on patient body mass) was performed for surgical prophylaxis per orthopaedic surgical open internal fixation fracture care operative protocols and was completed at least 30 and less than 60 minutes prior to making an incision. The patient was positioned supine on the operating traction table in standard fashion for a right high subtrochanteric hip fracture closed reduction and minimally invasive open cephalomedullary nail internal fixation taking care to protect and stabilize the hip and lower extremity during transfer, abduct the left arm on a well padded arm board and adduct the right arm over the torso on a pillow so as to avoid positions of nerve stretch with all pressure points carefully padded. Fracture reduction was achieved with standard positioning and traction. This optimized alignment was documented on preincision intraoperative AP, lateral and oblique fluoroscopic spot views. No other change in fracture alignment, fracture fragment position or orientation was noted compared to preoperative images. The surgeon, anesthesia care team, and operating room staff again documented the patient identity, surgical procedure, and operative site as well as other clinical details in a final documented confirmation (final time out) prior to beginning the procedure. Exposure - Sterile prep and drape were performed using standard technique with DuraPrep and an Ioban antimicrobial incise curtain drape. Reference lines for the fracture, the tip of the greater trochanter, the femoral neck and shaft as well as the cephalad lag screw entry point at the lateral flare of the proximal femur were drawn with a marking pen along a radiopaque marker placed on the skin and projected over these structures on AP, lateral and oblique fluoroscopic views. The extent of the primary proximal incision for nail insertion was then marked and this linear incision was infiltrated with local anesthetic and made longitudinally extending proximally from the tip of the greater trochanter for approximately 5 cm using a #10 scalpel blade. Hemostasis was achieved using Bovie electrocautery beginning with the skin edges of the incision and continuing throughout the procedure (including additional more distal incisions described below) where necessary with settings appropriate to each progressive tissue level. The dissection was carried down through the subcutaneous layer and the fascia was divided longitudinally in line with and throughout the length of the small proximal skin incision using Metzenbaum scissors with a blunt spreading dissection technique. Further subfascial Metzenbaum and digital blunt dissection was carried down to the superior cortical margin of the tip of the greater trochanter of the femur. Each successive layer was dissected slightly more distal than the one superficial to it taking an overall inferomedial approach to match the intended intramedullary guidewire and nail trajectory along the angle of the femoral shaft. A speculum-type soft tissue protector was placed through the dissected soft tissue layers down to the intended greater trochanteric cortical entry point so as to prevent muscular injury during drilling of the entry site or placement of the guide-wire and nail. A threaded guidepin was advanced along this dissected path to the superior tip of the greater trochanter and confirmed to be at the optimal nail entry site just lateral to the most superior prominence of the greater trochanter on AP fluoroscopic view and just posterior to the greater trochanteric midpoint on the lateral view. Once the optimal entry point was confirmed, the guidepin was advanced through the cortex at that point and into the intertrochanteric region using a drill taking care to maintain optimal trajectory parallel to the intramedullary canal and avoid contact with or penetration beyond the medial femoral cortex. Optimal position of the guidepin was confirmed on orthogonal fluoroscopic views and the cannulated drill for the proximal nail entry site specific to this instrumentation design was passed over the guidepin and used to drill the proximal opening down to the intertrochanteric level. Care was again taken to avoid cortical fracture or displacement extending from the circular entry site, maintain optimal trajectory parallel to the intramedullary canal and avoid contact with or penetration beyond the medial femoral cortex either at the high subtrochanteric fracture site or in the more distal intact subtrochanteric medial cortical region. Minimally Invasive Open Cephalomedullary Nail Internal Fixation - With the fracture reduced and the nail entry site prepared at the tip of the greater trochanter, a short Gamma-3 cephalomedulllary nail measuring 11 mm in diameter and 180 mm in length with a 130 degree cephalomedullary angle was selected and attached to the impaction apparatus. The nail was advanced under fluoroscopic guidance to a depth and with proper rotation so as to optimize placement of the cephalic ("head-neck") screw in standard position for proximal fixation (inferomedial head and neck) as noted above. During the final phase of nail implantation the lower extremity traction was partially released to allow narrowing of the fracture gap and partial compression across the fracture during final nail impaction. In this final position, the nail was confirmed to be of optimal length with the proximal end only slightly above the tip of the greater trochanter and the distal end in the upper diaphyseal region. The fracture was found to be stable, well aligned and reduced once the nail was fully impacted. The proximal fixation guidance arm was attached and the 130 degree guide hole was selected. Rotation of the nail was optimized on the oblique lateral fluoroscopic view matching the patient's normal reduced head-neck angle and the drill sleeve was advanced to the level of the skin and used to edi the incision for proximal guidepin and screw placement. A small 5 mm lateral thigh incision was made at that point using a #10 scalpel blade. The dissection was carried down through the subcutaneous layer and the fascia was divided longitudinally throughout the length of the small incision using Metzenbaum scissors with a blunt spreading dissection technique. Further subfascial Metzenbaum blunt dissection was carried down to the lateral cortical surface of the femur. Each successive layer was dissected slightly more proximally than the one superficial to it taking an overall superomedial approach to match the intended guidepin and lag screw trajectory along the angle of the femoral neck. The drill sleeve was advanced through this dissected path down to the lateral femoral cortex at the flare of the proximal femur. The nail was impacted slightly to optimize the entry site for the proximal fixation screw. A partially threaded guide pin was then advanced through the drill sleeve down to the lateral femoral cortex where the longitudinal level of the guide-pin and subsequent cannulated lag screw entry point was confirmed to be optimal for proximal fixation screw placement just inferomedial to the central axis of the neck and head of the femur on AP fluoroscopic view. The pin was then advanced into the central portion of the femoral head using a drill while checking trajectory and length on orthogonal C-arm views to insure straight linear pin insertion without bending and placement just inferior to the central axis of the femoral neck and head for optimal proximal osseous fixation. C-arm views were also checked to insure that the depths of the guide-pin tip was approximately 5 mm below the chondral surface of the joint. The slotted depth gauge was used to measure the appropriate screw length from the lateral femoral cortex per its subtraction measurement design. No significant gap was noted between the drill sleeve (used for this subtraction measurement) and the femoral cortex therefore no adjustment was necessary to the measurement made above. The cannulated step-cut cortical entry hole drill bit was used to drill the proximal path for the cannulated cephalad screw with AP C-arm views monitoring the depth and trajectory of the drill bit and guide pin to insure maintenance of inferomedial path in the femoral neck and head, drill tip depth through the lateral femoral cortical surface to approximately 1 cm below the chondral surface without binding or advancement of the guide-pin toward the hip joint surface. Based on the previously described guidepin depth measurement, a 10.5 mm diameter x 100 mm length proximal fixation cannulated screw was selected and advanced over the guidepin, through the lateral femoral cortical opening created by the cannulated step-cut drill, and into the femoral neck and head with excellent insertional and final fixation torque (particularly considering the patient's age, gender and intra-operative radiologic findings suggestive of osteopenia). Optimal placement and final position were documented with AP and lateral fluoroscopic views to insure that the proper depth was achieved with the threaded fixation end of the screw at approximately 1 cm below the chondral surface of the joint and with the "head" end of the screw projecting only slightly past the lateral femoral cortex of the femur for optimal circumferential fixation within the lateral femoral cortical drill hole. This position provided optimal fracture stabilization while also allowing for controlled interfragmentary lag effect. Care was taken to avoid any rotation of the head-neck fragment during proximal interfragmentary lag screw insertion. Fracture line and fracture fragment alignment, orientation and configuration were closely observed and confirmed to be optimal, unchanged and without fragment rotation, fracture line widening or joint surface penetration throughout the process of guide-pin placement, drilling and final screw fixation. With proximal fixation achieved, attention was turned to the distal interlocking fixation. Lower extremity and fracture rotation were adjusted such that the fracture was optimally aligned while the rotation angle between the foot and the fluoroscopic axis of the femoral neck generally matched the normal version of the hip. Once near-anatomic rotation was achieved, traction was released and the leg gently longitudinally impacted so that the fracture was optimally compressed. The Gamma nail aiming arm rotation setting was adjusted for placement of the distal transfixion screw in the dynamic position and the modular drill sleeve for the distal drill and screw was advanced through the appropriate guide hole in the aiming arm to the level of the skin. The cutaneous point of contact of the sleeve was marked and a small 5 mm lateral thigh incision was made at that point using a #10 scalpel blade. The dissection was carried down through the subcutaneous layer and the fascia was divided longitudinally throughout the length of the small incision using Metzenbaum scissors with a blunt spreading longitudinal dissection technique in line with the fascial and muscle fibers. Further subfascial Metzenbaum blunt dissection was carried down to the lateral cortical surface of the femur with the path alignment orthogonal to the femur matching the intended transfixion screw trajectory. The drill sleeve was advanced through this dissected path down to the lateral femoral cortex at the upper diaphyseal level of the femur. A drill was then advanced through the sleeve down to the lateral femoral cortex and a bicortical transfixion screw hole was fashioned orthogonal to and through the distal end ( "dynamic position") of the oval distal nail fixation hole using standard technique. The drill sleeve was confirmed fluoroscopically to be directly contacting the lateral femoral cortex for optimal measurement accuracy and the screw length was measured from markings on the drill bit at the outermost level of the drill sleeve per system design. The drill bit was then removed and a 5 mm diameter x 35 mm length fully threaded transfixion screw was placed at the drilled site with excellent insertional and final fixation torque (consistent with solid bicortical capture). Final optimal position of all hardware, reduction of the fracture line and alignment of all fracture fragments was confirmed on multiaxial fluoroscopic images. Finally, the leg was rotated under fluoroscopic imaging to document stable fracture fixation and coplanar singular fracture fragment rotation without any displacement across the fracture line on dynamic radiographic evaluation and without screw penetration too close to the femoral articular surface on multiple angle projections. Final fluoroscopic images were saved and uploaded to the [facility] Radiology PACS system prior to closure per Radiology Department protocol. Closure/Recovery - The surgical sites were thoroughly irrigated and hemostasis was carefully achieved prior to closure. Initial counts were correct. The edges of the tensor and vastus lateralis fascia were reapproximated using simple #2-0 Vicryl sutures with a few interrupted sutures to close the fascial layer in the uppermost surgical site and single sutures at each of the two lower screw placement surgical sites. The deep and superficial subcutaneous closure was achieved with #2-0 dyed and #3-0 undyed Vicryl respectively using an inverted, interrupted technique. The cutaneous layer was closed using asa with the skin edges everted. A standard, sterile Xeroform, fluff 6x6 gauze and ABD pad dressing was placed with good surgical site coverage and was held in place with foam tape taking care to avoid tension on the skin. All final counts were correct prior to removing the drapes. The foot section of the table was reattached and the patient's lower extremities were removed from the traction table attachments and returned to their neutral resting positions. The postoperative lower extremity alignment was more symmetrical than had been noted preoperatively. Bilateral pulses and capillary refill were confirmed to be normal and similar to preoperative status. The LMA was removed without difficulty and the patient was transferred to the hospital bed in the supine position taking care to support the pelvis, hips and lower extremities in the neutral position during transfer. Recovery Room Assessment: The patient was transported to the recovery room in stable condition where gross neurological examination showed no deficits on initial recovery from anesthesia. Gentle log roll of the operative leg was not associated with the same discomfort that she had reported preoperatively although there was still some expected discomfort consistent with her injury, fracture and surgery. She will follow the usual postoperative protocol for minimally invasive open reduction and short cephalomedullary nail internal fixation of displaced angulated but ultimately near-anatomically reduced, stable and well fixed high subtrochanteric hip and proximal femoral region fracture. This will include early mobilization, supervised transfers and ambulation with progressive protected (walker-assisted) weight-bearing as tolerated, and discharge planning in preparation for transfer to inpatient rehabilitation program as patient is an excellent short-term rehabilitation candidate by orthopaedic criterion. Discharge Disposition: PACU CC: Manolo MIRANDA,Edi Aguilar
[2018-01-09 22:10] VITALS: BP 110/60
[2018-01-10 06:06] VITALS: BP 110/60
--- NOTE | 2018-01-10 06:30 | PN- Housestaff ---
See Addendum Subjective Follow-up For: R. Hip fracture Complaints: pain scale (0-10) Subjective: Patient was seen and examined at bed side. No acute events overnight. Patient has not had any more episodes of emesis since before surgery. Patient had a light dinner, which she tolerated well. Patient is having some pain from the surgical site rates its a 8/10, but improves to 2/10 with tylenol and morphine. Patient denies N/V, fever, SOB, weakness. Review of Systems Constitutional: Denies: chills, diaphoresis, fever. EENTM: Denies: blurred vision. Cardiovascular: Denies: chest pain, palpitations. Respiratory: Denies: cough, short of breath. Gastrointestinal: Denies: abdominal pain, constipation, diarrhea, nausea, vomiting. Objective Last 24 Hrs of Vital Signs/I&O Vital Signs Date Time Temp Pulse Resp B/P B/P Pulse O2 O2 Flow FiO2 Mean Ox Delivery Rate 01/10 0750 Room Air 01/10 0606 98.2 93 16 110/60 96 Room Air / 2210 98.7 95 18 110/60 95 07/05 1324 97.6 90 20 116/66 99 Nasal 2.0L Cannula Intake & Output 01/10 1600 /06 0800 07/06 0000 Intake Total 300 220 Output Total 0 10 Balance 300 210 Intake, IV 100 120 Intake, Oral 200 100 Number 0 Bowel Movements Output, Urine 0 10 Physical Exam General Appearance: Alert, Oriented X3, Cooperative Skin: No Rashes, Dialysis port cath. present on right chest, currently wrapped, HEENT: Atraumatic, PERRLA, EOMI Neck: Supple, No LAD Cardiovascular: Regular Rate, Normal S1, Normal S2 Lungs: Clear to Auscultation, Normal Air Movement Abdomen: Normal Bowel Sounds, Soft, No Tenderness Extremities: No Edema, Normal Pulses, No Tenderness/Swelling, Right hip covered in dressing, surgical site tender to palpation, no erythema, warmth or discharge present. Assessment/Plan Assessment: Ms. Bailey 77-year-old lady with past medical history significant for anxiety, asthma, colon cancer status post resection, diverticulitis, nephrectomy, arthritis and end-stage renal disease on dialysis (M, W, F) presents after sustaining a fall on 01/08/18. Patient underwent R. Hip ORIF with Dr. French. Patient underwent dialysis today. #R. Hip fracture s/o ORIF POD #1 R. Hip Xray on 01/09/18 showing comminuted intratrochanteric fracture of the right hip. Fracture is angulated and mildly displaced plan: - tylenol 1000 mg and Tramadol 50mg PO - underwent inital PT eval. - Underwent ORIF with Dr. French #ESRD patient is on dialysis M,W,F. International Account Manager = 2.9. GFR = 15, severe CKD plan: - completed dialysis today - followed by nephrology #Leukocytosis - resolved WBC = 17.5. Source unclear most likely related to fall, afebrile, does not take steroids, no signs of infection. Urine culture has no growth after 1 day. DVT PPx: None, per ortho rec's diet: Regular Code: Full code Problem List: 1. Closed right hip fracture Pain Ratin Pain Location: R. hip Pain Goal: Pain 4 or less Pain Plan: Tylenol and Tramadol Tomorrow's Labs & Rationales: None DVT/Prophylaxis: None, Ortho recs
--- NOTE | 2018-01-10 07:27 | PN- Orthopedic ---
See Addendum Subjective Subjective: Patient reports pain is controlled. Lowery was removed. She is tolerating a diet, but reports she does not have an appetite. She states she has note ambulated with PT yet. She offers no other complaints. Objective Vital Signs and I&Os Vital Signs Date Time Temp Pulse Resp B/P B/P Pulse O2 O2 Flow FiO2 Mean Ox Delivery Rate 01/10 0606 98.2 93 16 110/60 96 Room Air 01/09 2210 98.7 95 18 110/60 95 / 1324 97.6 90 20 116/66 99 Nasal 2.0L Cannula Intake & Output 01/10 0801/10 0000 01/09 1600 01/09 0801/09 0000 01/08 1600 Intake Total 300 220 130 50 Output Total 0 10 100 Balance 300 210 130 -50 Intake, IV 100 120 130 50 Intake, Oral 200 100 0 Number 0 0 Bowel Movements Output, 100 Emesis Output, Urine 0 10 Patient 110 lb Weight Weight Bed scale Measurement Method Physical Exam: Gen - resting comfortably accompained by her son in nad Cardiac - S1S2 noted Ext - R thigh dressing c/d/i, compartment soft, moves all extremities, motor and sensory intact, alps in place, no edema or calf tenderness Current Medications: Current Medications Sig/Nuris Start time Last Medication Dose Route Stop Time Status Admin Acetaminophen 1,000 MG .STK-MED ONE 01/09 1528 DC IV 01/09 1529 Acetaminophen 1,000 MG Q8 01/09 1400 AC 01/10 N/A 1 UNIT IV 01/10 1414 0601 Budesonide/ 2 PUF BID 01/09 0900 AC Formoterol Fumarate INH Calcium Acetate 1,334 MG WITH MEALS 01/09 0800 AC 01/09 PO 1808 Epoetin Michael 2,000 UNIT MoWeFr PRN 01/10 0715 AC IV Famotidine 20 MG .STK-MED ONE 01/09 0957 DC IV 01/09 0958 Famotidine 20 MG .STK-MED ONE 01/09 0955 DC IV 01/09 0956 Fentanyl Citrate 250 MCG .STK-MED ONE 01/09 0750 DC IM 01/09 0751 Lorazepam 1 MG TID PRN 01/09 0445 AC 01/09 PO 0556 Morphine Sulfate 2 MG Q4P PRN 01/09 0430 AC 01/10 IV 0448 Ondansetron HCl 4 MG .STK-MED ONE 01/09 1528 DC IV 01/09 1529 Pantoprazole Sodium 40 MG BID 01/09 915 AC 01/09 IV 2108 Paricalcitol 2.5 MCG MoWeFr PRN 01/10 715 AC IV Trimethobenzamide HCl 200 MG .STK-MED ONE 01/09 1529 DC IM 01/09 1530 Trimethobenzamide HCl 200 MG 4 TIMES/DAY PRN 01/09 915 AC IM Results Last 48 Hours of Labs: Laboratory Tests 01/09 01/09 01/09 1920 0600 0500 Chemistry Sodium Cancelled Potassium Cancelled Chloride Cancelled Carbon Dioxide Cancelled Anion Gap Cancelled BUN Cancelled Creatinine Cancelled BUN/Creatinine Ratio Cancelled Hematology CBC w Diff NO MAN DIFF REQ Cancelled WBC (4.8 - 10.8 /CUMM) 12.2 H Cancelled RBC (4.20 - 5.40 /CUMM) 3.21 L Cancelled Hgb (12.0 - 16.0 G/DL) 10.2 L Cancelled Hct (37 - 47 %) 30.5 L Cancelled MCV (81.0 - 99.0 FL) 95.3 Cancelled MCH (27.0 - 31.0 PG) 31.8 H Cancelled MCHC (33.0 - 37.0 G/DL) 33.3 Cancelled RDW (11.5 - 14.5 %) 14.1 Cancelled Plt Count (130 - 400 /CUMM) 211 Cancelled MPV (7.4 - 10.4 FL) 8.8 Cancelled Gran % (42.2 - 75.2 %) 89.6 H Lymphocytes % (20.5 - 51.1 %) 4.9 L Monocytes % (1.7 - 9.3 %) 5.4 Eosinophils % (0 - 5 %) 0 Basophils % (0.0 - 2.0 %) 0.1 Absolute Granulocytes (1.4 - 6.5 /CUMM) 10.9 H Absolute Lymphocytes (1.2 - 3.4 /CUMM) 0.6 L Absolute Monocytes (0.10 - 0.60 /CUMM) 0.7 H Absolute Eosinophils (0.0 - 0.7 /CUMM) 0 Absolute Basophils (0.0 - 0.2 /CUMM) 0 07/05 0215 Chemistry Sodium (137 - 145 mmol/L) 140 Potassium (3.5 - 5.1 mmol/L) 3.7 Chloride (98 - 107 mmol/L) 101 Carbon Dioxide (22 - 30 mmol/L) 23 Anion Gap (5 - 16) 16 BUN (7 - 17 mg/dL) 10 Creatinine (0.5 - 1.0 mg/dL) 2.9 H Estimated GFR (>60 ml/min) 15 L BUN/Creatinine Ratio (7 - 25 %) 3.4 L Glucose (65 - 99 mg/dL) 135 H Calcium (8.4 - 10.2 mg/dL) 10.0 Total Bilirubin (0.2 - 1.3 mg/dL) 0.5 Direct Bilirubin (< 0.4 mg/dL) 0.3 AST (14 - 36 U/L) 13 L ALT (9 - 52 U/L) 29 Alkaline Phosphatase (<127 U/L) 187 H Troponin I (< 0.11 ng/ml) < 0.01 Total Protein (6.3 - 8.2 g/dL) 6.2 L Albumin (3.5 - 5.0 g/dL) 4.0 Amylase (30 - 110 U/L) 72 Lipase (23 - 300 U/L) 277 Coagulation PT (9.4 - 12.5 SEC) 11.7 INR (0.90 - 1.19) 1.07 APTT (25 - 37 SEC) 27 Hematology CBC w Diff MAN DIFF ORDERED WBC (4.8 - 10.8 /CUMM) 17.5 H RBC (4.20 - 5.40 /CUMM) 3.69 L Hgb (12.0 - 16.0 G/DL) 11.8 L Hct (37 - 47 %) 35.3 L MCV (81.0 - 99.0 FL) 95.7 MCH (27.0 - 31.0 PG) 32.0 H MCHC (33.0 - 37.0 G/DL) 33.4 RDW (11.5 - 14.5 %) 14.4 Plt Count (130 - 400 /CUMM) 259 MPV (7.4 - 10.4 FL) 8.4 Gran % (42.2 - 75.2 %) 88.7 H Lymphocytes % (20.5 - 51.1 %) 5.6 L Monocytes % (1.7 - 9.3 %) 5.2 Eosinophils % (0 - 5 %) 0.2 Basophils % (0.0 - 2.0 %) 0.3 Absolute Granulocytes (1.4 - 6.5 /CUMM) 15.5 H Segmented Neutrophils (42.2 - 75.2 %) 85 H Band Neutrophils (0.0 - 5.0 %) 1 Absolute Lymphocytes (1.2 - 3.4 /CUMM) 1.0 L Lymphocytes (20.5 - 51.1 %) 8 L Monocytes (1.7 - 9.3 %) 4 Absolute Monocytes (0.10 - 0.60 /CUMM) 0.9 H Absolute Eosinophils (0.0 - 0.7 /CUMM) 0 Basophils (0.0 - 2.0 %) 2 Absolute Basophils (0.0 - 0.2 /CUMM) 0 Platelet Estimate (ADEQUATE) ADEQUATE Polychromasia 1+ Poikilocytosis 1+ Ovalocytes 1+ Stomatocytes FEW [place] Cells RARE Elliptocytes FEW Other Body Source Fld Total RBCs Counted (%) 100 Assessment/Plan Assessment/Plan 87 F POD 1 s/p R hip ORIF, recovering well, awaiting PT eval PT eval, WBAT Transition to oral analgesics No anticoagulation needed from surgical standpoint per Dr. French, any anticoag is for other reasons per medicine F/u labs Dressing change POD2 Will d/w Dr. French
[2018-01-10 09:03] LABS: ABSOLUTE BASOPHIL COUNT 0 /CUMM (0.0-0.2); ABSOLUTE EOSINOPHIL COUNT 0 /CUMM (0.0-0.7); ABSOLUTE GRANULOCYTE CT 6.7 /CUMM (1.4-6.5); ABSOLUTE LYMPH COUNT 1.2 /CUMM (1.2-3.4); ABSOLUTE MONOCYTE COUNT 0.8 /CUMM (0.10-0.60); BASOPHIL % 0.6 % (0.0-2.0); EOSINOPHIL % 0.4 % (0-5); GRANULOCYTE % 76.2 % (42.2-75.2); MEAN CORPUSCULAR HGB 31.9 PG (27.0-31.0); MEAN CORPUSCULAR VOLUME 96.6 FL (81.0-99.0); MEAN PLATELET VOLUME 9.2 FL (7.4-10.4); PLATELET COUNT 197 /CUMM (130-400); RBC DISTRIBUTION WIDTH 14.1 % (11.5-14.5); RED BLOOD CELL CT 2.64 /CUMM (4.20-5.40); WHITE BLOOD CELL COUNT 8.7 /CUMM (4.8-10.8)
[2018-01-10 09:09] LABS: HEMATOCRIT 25.5 % (37-47)
[2018-01-10 14:13] VITALS: BP 110/68
--- NOTE | 2018-01-10 14:21 | Discharge Summary ---
Visit Information Visit Dates Admission Date: 01/09/18 Discharge Date: 01/15/18 Hospital Course Course Attending Physician: Gregor Myers MD Primary Care Physician: Nilam MIRANDA,[facility] Course: Ms. Bailey 77-year-old lady with past medical history significant for anxiety, asthma, colon cancer status post resection, diverticulitis, nephrectomy(unsure if R or L), arthritis and end-stage renal disease on dialysis (M, W, F) presents after a fall. On presentation, patient had stable vital signs, leukocytosis with left shift, and elevated creatinine. Hip x-ray revealed a comminuted intertrochanteric fracture of the hip. She was admitted to general medicine and treated for the following problems: 1. Intratrochanteric fracture of the hip 2. ESRD on dialysis 3. Coffee-ground emesis 4. Acute blood loss anemia # Intratrochanteric fracture of the hip: Patient was admitted status post fall found to have a fracture and subsequently underwent ORIF with Dr. French. She tolerated the procedure well. Her diet was advanced as tolerated postoperatively her pain was well controlled. She is weightbearing as tolerated and will follow up with orthopedics as an outpatient. #ESRD on dialysis: Nephrology was consulted given the patient has end-stage renal disease on hemodialysis. Her dialysis schedule is maintained Saturday and she should continue this going forward. # Coffee-ground emesis: Preoperatively, the patient was noted to have some vomiting after receiving hydromorphone IV. The emesis was guaiac positive. The hematemesis did not recur the patient was maintained on a PPI. Follow-up with gastroenterology as an outpatient. #Acute blood loss anemia: Patient's hemoglobin dropped postsurgically likely secondary to blood loss. She received 1 unit of packed red blood cell and has remained hemodynamically stable. #Chronic medical problems: Her other home medications are continued. Allergies: Coded Allergies: sorbitol (UNKNOWN REACTION 01/09/18) Disposition Summary Disposition Principal Diagnosis: 1. Intratrochanteric fracture of the hip Additional Diagnosis: 2. ESRD on dialysis 3. Coffee-ground emesis Discharge Disposition: SNF Discharge Instructions General Discharge Information Code Status: Full Code Patient's Diet: Renal dialysis diet Patient's Activity: As tolerated Follow-Up Instructions/Appts: Please take all medications as directed. Please follow-up with orthopedic surgery, primary care, and gastroenterology. Medications at Discharge Discharge Medications: Stop taking the following medications: Calcium Acetate (Phoslyra) 667 MG (169 MG CALCIUM)/5 ML SOLUTION ORAL THREE TIMES DAILY Continue taking these medications: Epoetin Michael (Procrit) 2,000 UNIT/ML VIAL 2,200 Units PUSH MoWe Comments: NOT GIVEN IN HOSPITAL Biotin (Biotin) 5 MG TABLET 1 Tablet ORAL DAILY Comments: NOT GIVEN IN HOSPITAL Ubidecarenone (Co Q-10) 200 MG CAPSULE 1 Capsule ORAL DAILY Comments: NOT GIVN IN HOSPITAL Jackson-3S/Dha/Epa/Fish Oil (Fish Oil 1,200 MG Softgel) 360-1,200MG CAPSULE 1 Capsule ORAL Every night Comments: NOT GIVEN IN HOSPITAL Folic Acid/Vit Bcomp,C (Dialyvite Tablet) 1 MG-100 MG TABLET 1 Tablet ORAL DAILY Comments: NOT GIVEN IN HOSPITAL LORazepam (Ativan) 1 MG TAB 1 Tablet ORAL THREE TIMES DAILY Comments: Last Taken: 01/15/18 Time: 12:50PM Mv-Mn/FA/Vit K1/Lycop/Lut/Zeax (Ocuvite Eye + Multi Tablet) 200 MCG-15 MCG-150 MCG-5 MG-1 MG TABLET 1 Tablet ORAL DAILY Comments: NOT GIVEN IN HOSPITAL Budesonide/Formoterol Fumarate (Symbicort 80-4.5 Mcg Inhaler) 80 MCG-4.5 MCG/ ACTUATION HFA.AER.AD 2 Puff Inhale through mouth TWICE DAILY Comments: Last Taken: 01/15/18 Time: 12:52PM Midodrine HCl (Midodrine HCl) 5 MG TABLET 1 Tablet ORAL SATURDAY, SATURDAY AND SATURDAY Qty = 30 Instructions: Given before dialysis Comments: Last Taken: 01/15/18 Time: 8:31AM Start taking the following new medications: Calcium Acetate (Calcium Acetate) 667 MG CAPSULE 667 Milligram ORAL WITH MEALS Qty = 30 No Refills Comments: Last Taken: 01/15/18 Time: 6:00PM Copies To: Manolo MIRANDA,Eldon Smiley; Nilam MIRANDA,Denisse; Suhail MIRANDA,Kendrick; Surekha MIRANDA,Rashawn Escobar; Diego MIRANDA,Mandeep Ramos; Osmany MIRANDA,Kevin Soriano MD Review Statement Documenting Attending: Gregor Myers MD Other Findings: The patient was seen and agree with the plan of care. Should have repeat H/H drawn with dialysis on 01/17. OP workup of UGI bleeding at time of admit. Continue PPI as OP. Watch for bleeding.
--- NOTE | 2018-01-10 15:04 | PN- Nephrology ---
Assessment/Plan Nephrology Assessment: End-stage renal disease: Stable from a renal standpoint. Dialzyed today according to her MWF schedule. She is dialyzed via an Mike catheter chronically which we will use for dialysis tomorrow. If the patient and her son elect for her to go to short-term rehabilitation in the [facility] then she may need a temporary outpatient dialysis at the [facility]; would involve the case management; if goes to [facility] [place] then would continue HD at [facility]. anemia of CKD: On epogen 3x/week Suggestion: Next HD saturday add her home dose of midodrine 5 mg po qMWF prior to dialysis (she is prone to hypotension during dialysis) discharge planning Subjective Subjective: dialyzed this AM was very anxious as didn't get ativan until post HD Review of Systems: no fever/chills +leg pain Objective Vital Signs and I&Os Vital Signs Date Time Temp Pulse Resp B/P B/P Pulse O2 O2 Flow FiO2 Mean Ox Delivery Rate 01/10 1413 97.9 90 20 110/68 96 Room Air 01/10 0750 Room Air 01/10 0606 98.2 93 16 110/60 96 Room Air / 2210 98.7 95 18 110/60 95 Intake & Output 01/10 1600 01/10 0400 01/09 1600 01/09 0400 01/08 1600 01/08 0400 Intake Total 300 220 130 50 Output Total 0 10 100 Balance 300 210 30 50 Intake, IV 100 120 130 50 Intake, Oral 200 100 0 Number 0 0 Bowel Movements Output, 100 Emesis Output, Urine 0 10 Patient 110 lb 114 lb Weight Weight Bed scale Reported by Patient Measurement Method Physical Exam: General: NAD, A+O x3. HEENT: NC/AT. No icterus. Moist mucosa CV: RRR, no m/r/g Pulm: CTAB, no rales Abd: soft, NT/ND Lower Ext: neg edema or chronic venous changes Upper Ext: no AVFs or AVGs chest +MIKE cath Neuro: neg tremor, asterixis Current Medications: Current Medications Sig/Nuris Start time Last Medication Dose Route Stop Time Status Admin Acetaminophen 1,000 MG .STK-MED ONE 01/09 1528 DC IV 01/09 1529 Acetaminophen 1,000 MG Q8 01/09 1400 DC 01/10 N/A 1 UNIT IV 01/10 1414 1358 Budesonide/ 2 PUF BID 01/09 900 AC 01/10 Formoterol Fumarate INH 1143 Calcium Acetate 1,334 MG WITH MEALS 01/10 800 AC 01/10 PO 1143 Epoetin Michael 2,000 UNIT MoWeFr PRN 01/10 0715 AC IV Lorazepam 1 MG TID 01/10 1400 AC 01/10 PO 1357 Lorazepam 1 MG TID PRN 01/09 0445 DC 01/10 PO 01/10 1359 1145 Morphine Sulfate 15 MG Q4 HRS NEEDED PRN 01/10 0845 AC 01/10 PO 0904 Morphine Sulfate 2 MG Q4P PRN 01/09 0430 DC 01/10 IV 0448 Ondansetron HCl 4 MG .STK-MED ONE 01/09 1528 DC IV 01/09 1529 Pantoprazole Sodium 40 MG BID 01/09 915 AC 01/10 IV 1142 Paricalcitol 2.5 MCG MoWeFr PRN 01/10 715 AC IV Trimethobenzamide HCl 200 MG .STK-MED ONE 01/09 1529 DC IM 01/09 1530 Trimethobenzamide HCl 200 MG 4 TIMES/DAY PRN 01/09 915 AC IM Results Pertinent Lab Results: Laboratory Tests 01/10 01/09 0800 1920 Chemistry Sodium (137 - 145 mmol/L) 136 L Potassium (3.5 - 5.1 mmol/L) 4.4 Chloride (98 - 107 mmol/L) 100 Carbon Dioxide (22 - 30 mmol/L) 23 Anion Gap (5 - 16) 13 BUN (7 - 17 mg/dL) 24 H Creatinine (0.5 - 1.0 mg/dL) 4.5 H Estimated GFR (>60 ml/min) 9 L BUN/Creatinine Ratio (7 - 25 %) 5.3 L Hematology CBC w Diff NO MAN DIFF REQ NO MAN DIFF REQ WBC (4.8 - 10.8 /CUMM) 8.7 12.2 H RBC (4.20 - 5.40 /CUMM) 2.64 L 3.21 L Hgb (12.0 - 16.0 G/DL) 8.4 L 10.2 L Hct (37 - 47 %) 25.5 L 30.5 L MCV (81.0 - 99.0 FL) 96.6 95.3 MCH (27.0 - 31.0 PG) 31.9 H 31.8 H MCHC (33.0 - 37.0 G/DL) 33.0 33.3 RDW (11.5 - 14.5 %) 14.1 14.1 Plt Count (130 - 400 /CUMM) 197 211 MPV (7.4 - 10.4 FL) 9.2 8.8 Gran % (42.2 - 75.2 %) 76.2 H 89.6 H Lymphocytes % (20.5 - 51.1 %) 13.7 L 4.9 L Monocytes % (1.7 - 9.3 %) 9.1 5.4 Eosinophils % (0 - 5 %) 0.4 0 Basophils % (0.0 - 2.0 %) 0.6 0.1 Absolute Granulocytes (1.4 - 6.5 /CUMM) 6.7 H 10.9 H Absolute Lymphocytes (1.2 - 3.4 /CUMM) 1.2 0.6 L Absolute Monocytes (0.10 - 0.60 /CUMM) 0.8 H 0.7 H Absolute Eosinophils (0.0 - 0.7 /CUMM) 0 0 Absolute Basophils (0.0 - 0.2 /CUMM) 0 0 01/09 01/09 01/09 0600 0500 0248 Chemistry Sodium Cancelled Potassium Cancelled Chloride Cancelled Carbon Dioxide Cancelled Anion Gap Cancelled BUN Cancelled Creatinine Cancelled BUN/Creatinine Ratio Cancelled Hematology CBC w Diff Cancelled WBC Cancelled RBC Cancelled Hgb Cancelled Hct Cancelled MCV Cancelled MCH Cancelled MCHC Cancelled RDW Cancelled Plt Count Cancelled MPV Cancelled Urines Urine Color Cancelled Urine Clarity Cancelled Urine pH Cancelled Ur Specific [place] Cancelled Urine Protein Cancelled Urine Ketones Cancelled Urine Nitrite Cancelled Urine Bilirubin Cancelled Urine Urobilinogen Cancelled Ur Leukocyte Esterase Cancelled Ur Microscopic Cancelled Urine Hemoglobin Cancelled Urine Glucose Cancelled 01/09 0215 Chemistry Sodium (137 - 145 mmol/L) 140 Potassium (3.5 - 5.1 mmol/L) 3.7 Chloride (98 - 107 mmol/L) 101 Carbon Dioxide (22 - 30 mmol/L) 23 Anion Gap (5 - 16) 16 BUN (7 - 17 mg/dL) 10 Creatinine (0.5 - 1.0 mg/dL) 2.9 H Estimated GFR (>60 ml/min) 15 L BUN/Creatinine Ratio (7 - 25 %) 3.4 L Glucose (65 - 99 mg/dL) 135 H Calcium (8.4 - 10.2 mg/dL) 10.0 Total Bilirubin (0.2 - 1.3 mg/dL) 0.5 Direct Bilirubin (< 0.4 mg/dL) 0.3 AST (14 - 36 U/L) 13 L ALT (9 - 52 U/L) 29 Alkaline Phosphatase (<127 U/L) 187 H Troponin I (< 0.11 ng/ml) < 0.01 Total Protein (6.3 - 8.2 g/dL) 6.2 L Albumin (3.5 - 5.0 g/dL) 4.0 Amylase (30 - 110 U/L) 72 Lipase (23 - 300 U/L) 277 Coagulation PT (9.4 - 12.5 SEC) 11.7 INR (0.90 - 1.19) 1.07 APTT (25 - 37 SEC) 27 Hematology CBC w Diff MAN DIFF ORDERED WBC (4.8 - 10.8 /CUMM) 17.5 H RBC (4.20 - 5.40 /CUMM) 3.69 L Hgb (12.0 - 16.0 G/DL) 11.8 L Hct (37 - 47 %) 35.3 L MCV (81.0 - 99.0 FL) 95.7 MCH (27.0 - 31.0 PG) 32.0 H MCHC (33.0 - 37.0 G/DL) 33.4 RDW (11.5 - 14.5 %) 14.4 Plt Count (130 - 400 /CUMM) 259 MPV (7.4 - 10.4 FL) 8.4 Gran % (42.2 - 75.2 %) 88.7 H Lymphocytes % (20.5 - 51.1 %) 5.6 L Monocytes % (1.7 - 9.3 %) 5.2 Eosinophils % (0 - 5 %) 0.2 Basophils % (0.0 - 2.0 %) 0.3 Absolute Granulocytes (1.4 - 6.5 /CUMM) 15.5 H Segmented Neutrophils (42.2 - 75.2 %) 85 H Band Neutrophils (0.0 - 5.0 %) 1 Absolute Lymphocytes (1.2 - 3.4 /CUMM) 1.0 L Lymphocytes (20.5 - 51.1 %) 8 L Monocytes (1.7 - 9.3 %) 4 Absolute Monocytes (0.10 - 0.60 /CUMM) 0.9 H Absolute Eosinophils (0.0 - 0.7 /CUMM) 0 Basophils (0.0 - 2.0 %) 2 Absolute Basophils (0.0 - 0.2 /CUMM) 0 Platelet Estimate (ADEQUATE) ADEQUATE Polychromasia 1+ Poikilocytosis 1+ Ovalocytes 1+ Stomatocytes FEW [place] Cells RARE Elliptocytes FEW Other Body Source Fld Total RBCs Counted (%) 100
[2018-01-10] MEDS ORDERED: MIDODRINE HCL5 M1 PO (15:08)
--- NOTE | 2018-01-10 15:10 | Patient Discharge Instructions ---
Discharge Instructions General Discharge Information You had these procedures: Right hip fracture status post ORIF Watch for these problems: Fever, chest pain, shortness of breath Special Instructions: Please take all medications as directed. Please follow-up with orthopedic surgery, gastroenterology, and primary care. Diet Continue normal diet: Yes Activity Full Activity/No Limits: Yes Acute Coronary Syndrome Inclusion Criteria At DC or during hospital stay patient has or had the following: ACS DIAGNOSIS No Discharge Core Measures Meds if any: Prescribed or Continued at Discharge Meds if any: NOT Prescribed or Continued at Discharge Congestive Heart Failure Inclusion Criteria At DC or during hospital stay patient has or had the following: CHF DIAGNOSIS No Discharge Core Measures Meds if any: Prescribed or Continued at Discharge Meds if any: NOT Prescribed or Continued at Discharge Cerebrovascular accident Inclusion Criteria At DC or during hospital stay patient has or had the following: CVA/TIA Diagnosis No Discharge Core Measures Meds if any: Prescribed or Continued at Discharge Meds if any: NOT Prescribed or Continued at Discharge Venous thromboembolism Inclusion Criteria VTE Diagnosis No VTE Type NONE VTE Confirmed by (Test) NONE Discharge Core Measures - Per Current guidelines, there needs to be overlap - treatment for the first 5 days of Warfarin therapy. - If discharged on Warfarin prior to 5 days of - overlap therapy, the patient will need to be - assessed for post discharge needs including - *Post discharge parental anticoagulation - *Warfarin and/or parental anticoagulation education - *Follow up date to check INR post discharge At least 5 days overlap therapy as Inpatient No Meds if any: Prescribed or Continued at Discharge Note: Overlap Therapy is Warfarin and Anticoagulant Meds if any: NOT Prescribed or Continued at Discharge
[2018-01-10 22:29] VITALS: BP 102/58
[2018-01-11 06:36] VITALS: BP 110/54
--- NOTE | 2018-01-11 10:47 | PN- Orthopedic ---
Subjective Subjective: Patient lying in bed no complaints of pain Confused this morning but at her baseline Objective Vital Signs and I&Os Vital Signs Date Time Temp Pulse Resp B/P B/P Pulse O2 O2 Flow FiO2 Mean Ox Delivery Rate 01/12 636 99.0 106 20 110/54 97 Room Air 01/10 2229 98.7 99 20 102/58 92 01/10 1908 Room Air 01/10 1413 97.9 90 20 110/68 96 Room Air Intake & Output 01/11 0801/11 0000 01/10 1600 01/10 0801/10 0000 Intake Total 1800 300 220 Output Total 0 10 Balance 1800 300 210 Intake, IV 1000 100 120 Intake, Oral 800 200 100 Number 0 0 0 Bowel Movements Output, Urine 0 10 Patient 126 lb Weight Weight Bed scale Measurement Method Physical Exam: Alert but slightly confused Right hip mild edema dressings removed wound is clean dry and intact without drainage or erythema dry sterile dressing is placed Bilaterally distal pulses intact feet warm Current Medications: Current Medications Sig/Nuris Start time Last Medication Dose Route Stop Time Status Admin Acetaminophen 1,000 MG Q8 PRN 01/10 1530 AC PO Acetaminophen 1,000 MG Q8 01/09 1400 DC 01/10 N/A 1 UNIT IV 01/10 1414 1358 Budesonide/ 2 PUF BID 01/09 900 01/11 Formoterol Fumarate INH 0948 Calcium Acetate 1,334 MG WITH MEALS 01/09 08 AC 01/10 PO 1801 Epoetin Michael 2,000 UNIT MoWeFr PRN 01/10 0715 AC IV Heparin Sodium 5,000 UNIT Q8 01/10 1615 01/11 (Porcine) SC 0532 Lorazepam 1 MG TID 01/10 1400 01/11 PO 0949 Lorazepam 1 MG TID PRN 01/09 0445 DC 01/10 PO 01/10 1359 1145 Midodrine 5 MG 01/13 09 AC PO Morphine Sulfate 15 MG Q4 HRS NEEDED PRN 01/10 0845 DC 01/10 PO 0904 Pantoprazole Sodium 40 MG BID 01/09 0915 AC 01/11 IV 0948 Paricalcitol 2.5 MCG MoWeFr PRN 01/10 0715 AC IV Tramadol HCl 50 MG Q6 PRN 01/10 1530 AC PO Trimethobenzamide HCl 200 MG 4 TIMES/DAY PRN 01/09 09 AC IM Results Last 48 Hours of Labs: Laboratory Tests 01/10 01/09 0800 1920 Chemistry Sodium (137 - 145 mmol/L) 136 L Potassium (3.5 - 5.1 mmol/L) 4.4 Chloride (98 - 107 mmol/L) 100 Carbon Dioxide (22 - 30 mmol/L) 23 Anion Gap (5 - 16) 13 BUN (7 - 17 mg/dL) 24 H Creatinine (0.5 - 1.0 mg/dL) 4.5 H Estimated GFR (>60 ml/min) 9 L BUN/Creatinine Ratio (7 - 25 %) 5.3 L Hematology CBC w Diff NO MAN DIFF REQ NO MAN DIFF REQ WBC (4.8 - 10.8 /CUMM) 8.7 12.2 H RBC (4.20 - 5.40 /CUMM) 2.64 L 3.21 L Hgb (12.0 - 16.0 G/DL) 8.4 L 10.2 L Hct (37 - 47 %) 25.5 L 30.5 L MCV (81.0 - 99.0 FL) 96.6 95.3 MCH (27.0 - 31.0 PG) 31.9 H 31.8 H MCHC (33.0 - 37.0 G/DL) 33.0 33.3 RDW (11.5 - 14.5 %) 14.1 14.1 Plt Count (130 - 400 /CUMM) 197 211 MPV (7.4 - 10.4 FL) 9.2 8.8 Gran % (42.2 - 75.2 %) 76.2 H 89.6 H Lymphocytes % (20.5 - 51.1 %) 13.7 L 4.9 L Monocytes % (1.7 - 9.3 %) 9.1 5.4 Eosinophils % (0 - 5 %) 0.4 0 Basophils % (0.0 - 2.0 %) 0.6 0.1 Absolute Granulocytes (1.4 - 6.5 /CUMM) 6.7 H 10.9 H Absolute Lymphocytes (1.2 - 3.4 /CUMM) 1.2 0.6 L Absolute Monocytes (0.10 - 0.60 /CUMM) 0.8 H 0.7 H Absolute Eosinophils (0.0 - 0.7 /CUMM) 0 0 Absolute Basophils (0.0 - 0.2 /CUMM) 0 0 Assessment/Plan Assessment/Plan 87-year-old female postop day #2 after ORIF of the right hip. Dressings changed today please change the dressing going forward if saturated. She is weightbearing as tolerated with physical therapy DVT prophylaxis is Alps Post op blood loss-continue to follow H/H She will need a follow-up appointment with Dr. French in approximately 2 weeks for staple removal Core Measures Venous Thromboembolism VTE Risk Factors Age>40 No Mechanical VTE Prophylaxis d/t N/A MechProphylax Ordered No VTE Pharm Prophylaxis d/t Surgical Contraindication
--- NOTE | 2018-01-11 11:34 | PN- Housestaff ---
Sunshine Ramirez 01/11/18 1131: Subjective Follow-up For: R. Hip fracture Complaints: no complaints Subjective: Patient seen and examined in bed chair, son and daughter in room. Patient has no c/o, she had just finished eating pancakes. Denies nausea or vomiting, is tolerating her diet. Does not recall her last BM. Patient was seen by PT this morning, states she was able to take a few steps but did have some pain, which was resolved with tylenol. Review of Systems Constitutional: Denies: chills, diaphoresis, fever. Cardiovascular: Denies: chest pain, palpitations. Respiratory: Denies: cough, short of breath. Gastrointestinal: Denies: abdominal pain, constipation, diarrhea, vomiting. Objective Last 24 Hrs of Vital Signs/I&O Vital Signs Date Time Temp Pulse Resp B/P B/P Pulse O2 O2 Flow FiO2 Mean Ox Delivery Rate 01/11 0636 99.0 106 20 110/54 97 Room Air 01/10 2229 98.7 99 20 102/58 92 01/10 1908 Room Air 01/10 1413 97.9 90 20 110/68 96 Room Air Intake & Output 01/11 1600 01/11 0800 01/11 0000 Intake Total Output Total Balance Number 0 0 Bowel Movements Patient 126 lb Weight Weight Bed scale Measurement Method Physical Exam General Appearance: Alert, Oriented X3, Cooperative Skin: No Rashes Sepsis Skin Exam (color): Normal for Ethnicity HEENT: Atraumatic, EOMI Neck: Supple, No LAD Cardiovascular: Regular Rate, Normal S1, Normal S2 Lungs: Clear to Auscultation, Normal Air Movement Abdomen: Normal Bowel Sounds, Soft, No Tenderness Neurological: Normal Speech Extremities: Right hip has dressing on it, no warmth or discharge appreciated Assessment/Plan Assessment: Ms. Bailey 77-year-old lady with past medical history significant for anxiety, asthma, colon cancer status post resection, diverticulitis, nephrectomy, arthritis and end-stage renal disease on dialysis (M, W, F) presents after sustaining a fall on 01/08/18. Patient underwent R. Hip ORIF with Dr. French. Patient underwent dialysis yesterday. Patient has been working with PT. #R. Hip fracture s/o ORIF POD #2 R. Hip Xray on 01/09/18 showing comminuted intratrochanteric fracture of the right hip. Fracture is angulated and mildly displaced plan: - tylenol 1000 mg and Tramadol 50mg PO - working with PT, recommend STR - Underwent ORIF with Dr. French Anemia most likely due to ESRD, patient did have initial episode of hematemesis prior to surgery on 01/09/18, patient does not have any symtoms or active bleeding Plan: - continue to monitor daily H/H #ESRD patient is on dialysis M,W,F. Refractory Specialist = 2.9. GFR = 15, severe CKD plan: - completed dialysis today - followed by nephrology #Leukocytosis - resolved WBC = 17.5. Source unclear most likely related to fall, afebrile, does not take steroids, no signs of infection. Urine culture has no growth after 1 day. DVT PPx: None, per ortho rec's diet: Regular Code: Full code Problem List: 1. Closed right hip fracture Pain Ratin Pain Location: R. hip Pain Goal: Pain 4 or less Pain Plan: Tylenol Tomorrow's Labs & Rationales: CBC Jasmin Hayden MD 01/11/18 1800: Attending MD Review Statement Attending Statement Attending MD Statement: examined this patient, discuss w/resident/PA/VENDOR SPECIALIST, agreed w/resident/PA/VENDOR SPECIALIST, reviewed EMR data (avail) Attending Assessment/Plan: 87F PMH anxiety, asthma, colon cancer status post resection, diverticulitis, nephrectomy(unsure if R or L), arthritis and end-stage renal disease on dialysis (M, W, F) admitted with mechanical fall and closed right intertrochanteric hip fracture s/p repair on 01/09, course complicated by coffee ground emesis and drop in Hgb. Patient feels well overall today. She complains of hip soreness but her pain is relatively well controlled. Her Hgb dropped to 8.4 yesterday. She is no longer vomiting and eating well with normal BM. No signs of bleeding. 1. Fall, initial 2. Closed right intertrochanteric hip fracture 3. Debbi-operative blood loss anemia 4. ESRD on HD Plan - Continue on general medicine - Repeat CBC today and tomorrow morning - Continue pain control - Follow nephrology and orthopedic recommendations - Continue home medications - DVT PPx - Continue PPI - If CBC stable can be discharged to STR tomorrow if bed is available
[2018-01-11 15:03] VITALS: BP 110/60
[2018-01-11 19:54] LABS: ABSOLUTE BASOPHIL COUNT 0.1 /CUMM (0.0-0.2); ABSOLUTE EOSINOPHIL COUNT 0.1 /CUMM (0.0-0.7); ABSOLUTE LYMPH COUNT 1.5 /CUMM (1.2-3.4); ABSOLUTE MONOCYTE COUNT 0.8 /CUMM (0.10-0.60); BASOPHIL % 0.6 % (0.0-2.0); EOSINOPHIL % 1.1 % (0-5); GRANULOCYTE % 78.5 % (42.2-75.2); HEMATOCRIT 29.1 % (37-47); MEAN CORPUSCULAR HGB 32.3 PG (27.0-31.0); MEAN CORPUSCULAR HGB CONC 33.6 G/DL (33.0-37.0); MEAN CORPUSCULAR VOLUME 95.9 FL (81.0-99.0); MEAN PLATELET VOLUME 9.2 FL (7.4-10.4); PLATELET COUNT 205 /CUMM (130-400); RBC DISTRIBUTION WIDTH 14.3 % (11.5-14.5); RED BLOOD CELL CT 3.03 /CUMM (4.20-5.40); WHITE BLOOD CELL COUNT 11.5 /CUMM (4.8-10.8)
[2018-01-11 22:05] VITALS: BP 102/64
[2018-01-12 06:32] VITALS: BP 108/56
--- NOTE | 2018-01-12 12:02 | PN- Housestaff ---
RamirezCarriejayden 01/12/18 1202: Subjective Follow-up For: R. Hip fracture Complaints: no complaints Subjective: Patient seen and examined in sitting chair. No acute events overnight, afebrile. Patient has no c/o. Denies fever, night sweats and chills. Pt. states she worked with PT, is feeling happy about the progress she is making. Review of Systems Constitutional: Reports: see HPI. Objective Last 24 Hrs of Vital Signs/I&O Vital Signs Date Time Temp Pulse Resp B/P B/P Pulse O2 O2 Flow FiO2 Mean Ox Delivery Rate 01/12 1401 97.4 97 20 100/58 96 Room Air 01/12 0632 99.0 60 18 108/56 96 Room Air 01/11 2205 98.6 94 18 102/64 95 Room Air Intake & Output 01/12 1600 01/12 0800 07/ 0000 Intake Total 800 225 225 Output Total 400 Balance 400 225 225 Intake, Oral 800 225 225 Number 0 0 Bowel Movements Output, Urine 400 Patient 125 lb Weight Weight Bed scale Measurement Method Physical Exam General Appearance: Alert, Oriented X3, Cooperative Skin: No Rashes, Right hip covered in dressing, minimal tenderness to touch around asa. HEENT: Atraumatic, EOMI Cardiovascular: Regular Rate, Normal S1, Normal S2 Lungs: Clear to Auscultation, Normal Air Movement Abdomen: Normal Bowel Sounds, Soft, No Tenderness, reducible abdominal hernia Assessment/Plan Assessment: Ms. Bailey 77-year-old lady with past medical history significant for anxiety, asthma, colon cancer status post resection, diverticulitis, nephrectomy, arthritis and end-stage renal disease on dialysis (M, W, F) presents after sustaining a fall on 01/08/18. Patient underwent R. Hip ORIF with Dr. French. Patient underwent dialysis yesterday. Patient has been working with PT. #R. Hip fracture s/o ORIF POD #2 R. Hip Xray on 01/09/18 showing comminuted intratrochanteric fracture of the right hip. Fracture is angulated and mildly displaced plan: - tylenol 1000 mg and Tramadol 50mg PO - working with PT, recommend STR - Underwent ORIF with Dr. French Anemia most likely due to ESRD, patient did have initial episode of hematemesis prior to surgery on 01/09/18, patient does not have any symtoms or active bleeding Plan: - continue to monitor daily H/H #ESRD patient is on dialysis M,W,F. 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 GFR = 15, severe CKD plan: - Dialysis tomorrow - followed by nephrology #Leukocytosis - resolved WBC = 17.5. Source unclear most likely related to fall, afebrile, does not take steroids, no signs of infection. Urine culture has no growth after 1 day. DVT PPx: None, per ortho rec's diet: Regular Code: Full code Discharge pending bed placement in STR. Problem List: 1. Closed right hip fracture Pain Ratin Pain Location: Right Hip Pain Goal: Remain pain free Pain Plan: Tylenol Tomorrow's Labs & Rationales: Cbc DVT/Prophylaxis: mechanical Discharge Plan Discharge Disposition: STR/[place] Stable for Discharge? Yes Anticipated Discharge (Day): tomorrow [facility] 1459: Attending MD Review Statement Attending Statement Attending MD Statement: examined this patient, discuss w/resident/PA/REROLLER HAND, agreed w/resident/PA/REROLLER HAND, reviewed EMR data (avail) Attending Assessment/Plan: 87F PMH anxiety, asthma, colon cancer status post resection, diverticulitis, nephrectomy(unsure if R or L), arthritis and end-stage renal disease on dialysis (M, W, F) admitted with mechanical fall and closed right intertrochanteric hip fracture s/p repair on 01/09, course complicated by coffee ground emesis and drop in Hgb. Patient feels well overall today. She complains of hip soreness but her pain is relatively well controlled. Hgb improved to 9.4. She is no longer vomiting and eating well with normal BM. No signs of bleeding. 1. Fall, initial 2. Closed right intertrochanteric hip fracture 3. Debbi-operative blood loss anemia 4. ESRD on HD Plan - Continue on general medicine - CBC tomorrow morning - Continue pain control - Follow nephrology and orthopedic recommendations - Continue home medications - DVT PPx - Continue PPI - Anticipated discharge to STR tomorrow if bed is available
[2018-01-12 14:01] VITALS: BP 100/58
[2018-01-12 22:08] VITALS: BP 102/60
[2018-01-13 06:36] VITALS: BP 102/54
[2018-01-13 08:36] LABS: ABSOLUTE BASOPHIL COUNT 0 /CUMM (0.0-0.2); ABSOLUTE EOSINOPHIL COUNT 0.3 /CUMM (0.0-0.7); ABSOLUTE GRANULOCYTE CT 6.1 /CUMM (1.4-6.5); ABSOLUTE MONOCYTE COUNT 0.5 /CUMM (0.10-0.60); BASOPHIL % 0.2 % (0.0-2.0)
[2018-01-13 08:39] LABS: GRANULOCYTE % 76.7 % (42.2-75.2); MEAN CORPUSCULAR HGB 32.4 PG (27.0-31.0); MEAN CORPUSCULAR HGB CONC 34.2 G/DL (33.0-37.0); MEAN CORPUSCULAR VOLUME 94.8 FL (81.0-99.0); MEAN PLATELET VOLUME 9.4 FL (7.4-10.4); PLATELET COUNT 195 /CUMM (130-400); RBC DISTRIBUTION WIDTH 13.4 % (11.5-14.5); RED BLOOD CELL CT 2.37 /CUMM (4.20-5.40)
[2018-01-13 08:41] LABS: HEMATOCRIT 22.4 % (37-47)
--- NOTE | 2018-01-13 11:06 | PN- Nephrology ---
Assessment/Plan Nephrology Assessment: 1. ESRD 2. Fractured right hip --> ORIF on 01/09 Suggestion: 1. Hemodialysis today in progress with ultrafiltration to her target weight as tolerated 2. Short-term rehab Subjective Subjective: Patient seems to be relatively comfortable. No specific complaints. Seen with hemodialysis. Labs reviewed. Objective Vital Signs and I&Os Vital Signs Date Time Temp Pulse Resp B/P B/P Pulse O2 O2 Flow FiO2 Mean Ox Delivery Rate 01/14 0836 Room Air 01/13 0636 98.3 90 18 102/54 95 Room Air 01/12 2208 98.1 98 20 102/60 95 Room Air 01/12 1401 97.4 97 20 100/58 96 Room Air Intake & Output 01/13 1600 01/13 0400 01/12 0400 01/11 0400 Intake Total 1025 225 800 Output Total 400 Balance 625 225 800 Intake, Oral 1025 225 800 Number 0 0 0 0 Bowel Movements Output, Urine 400 Patient 114 lb 125 lb 126 lb Weight Weight Bed scale Bed scale Bed scale Measurement Method Physical Exam: General: Well-developed, elderly white female in NAD Skin: No rash or jaundice HEENT: Conjunctivae pale, sclerae anicteric, mucous membranes moist Neck: Without masses or thyromegaly, no supraclavicular or cervical adenopathy Chest: Clear to P&A Heart: Regular rate and rhythm without S3 or rub Abdomen: Soft and nontender without palpable masses or organomegaly Extremities: Without cyanosis or edema Neuro: Cognitively intact, no focal findings, no asterixis or myoclonus Results Pertinent Lab Results: Laboratory Tests 01/13 01/12 0600 0600 Chemistry Sodium Cancelled Potassium Cancelled Chloride Cancelled Carbon Dioxide Cancelled Anion Gap Cancelled BUN Cancelled Creatinine Cancelled BUN/Creatinine Ratio Cancelled Hematology CBC w Diff NO MAN DIFF REQ Cancelled WBC (4.8 - 10.8 /CUMM) 8.0 Cancelled RBC (4.20 - 5.40 /CUMM) 2.37 L Cancelled Hgb (12.0 - 16.0 G/DL) 7.7 L Cancelled Hct (37 - 47 %) 22.4 L Cancelled MCV (81.0 - 99.0 FL) 94.8 Cancelled MCH (27.0 - 31.0 PG) 32.4 H Cancelled MCHC (33.0 - 37.0 G/DL) 34.2 Cancelled RDW (11.5 - 14.5 %) 13.4 Cancelled Plt Count (130 - 400 /CUMM) 195 Cancelled MPV (7.4 - 10.4 FL) 9.4 Cancelled Gran % (42.2 - 75.2 %) 76.7 H Lymphocytes % (20.5 - 51.1 %) 12.5 L Monocytes % (1.7 - 9.3 %) 6.6 Eosinophils % (0 - 5 %) 4.0 Basophils % (0.0 - 2.0 %) 0.2 Absolute Granulocytes (1.4 - 6.5 /CUMM) 6.1 Absolute Lymphocytes (1.2 - 3.4 /CUMM) 1.0 L Absolute Monocytes (0.10 - 0.60 /CUMM) 0.5 Absolute Eosinophils (0.0 - 0.7 /CUMM) 0.3 Absolute Basophils (0.0 - 0.2 /CUMM) 0 01/11 01/11 1930 1100 Chemistry Sodium Cancelled Potassium Cancelled Chloride Cancelled Carbon Dioxide Cancelled Anion Gap Cancelled BUN Cancelled Creatinine Cancelled BUN/Creatinine Ratio Cancelled Hematology CBC w Diff NO MAN DIFF REQ WBC (4.8 - 10.8 /CUMM) 11.5 H RBC (4.20 - 5.40 /CUMM) 3.03 L Hgb (12.0 - 16.0 G/DL) 9.8 L Hct (37 - 47 %) 29.1 L MCV (81.0 - 99.0 FL) 95.9 MCH (27.0 - 31.0 PG) 32.3 H MCHC (33.0 - 37.0 G/DL) 33.6 RDW (11.5 - 14.5 %) 14.3 Plt Count (130 - 400 /CUMM) 205 MPV (7.4 - 10.4 FL) 9.2 Gran % (42.2 - 75.2 %) 78.5 H Lymphocytes % (20.5 - 51.1 %) 13.0 L Monocytes % (1.7 - 9.3 %) 6.8 Eosinophils % (0 - 5 %) 1.1 Basophils % (0.0 - 2.0 %) 0.6 Absolute Granulocytes (1.4 - 6.5 /CUMM) 9.0 H Absolute Lymphocytes (1.2 - 3.4 /CUMM) 1.5 Absolute Monocytes (0.10 - 0.60 /CUMM) 0.8 H Absolute Eosinophils (0.0 - 0.7 /CUMM) 0.1 Absolute Basophils (0.0 - 0.2 /CUMM) 0.1
--- NOTE | 2018-01-13 13:42 | PN- Orthopedic ---
Subjective Subjective: pt in bed, complains of increased RLE pain. Denies CP/SOB. refusing to ambulate today Pt states she stopped wearing her ALPS yesterday Objective Vital Signs and I&Os Vital Signs Date Time Temp Pulse Resp B/P B/P Pulse O2 O2 Flow FiO2 Mean Ox Delivery Rate 01/14 0836 Room Air 01/13 0636 98.3 90 18 102/54 95 Room Air 01/12 2208 98.1 98 20 102/60 95 Room Air 01/12 1401 97.4 97 20 100/58 96 Room Air Intake & Output 01/13 1600 01/13 0800 01/13 0000 01/12 1600 01/12 0800 01/12 0000 Intake Total 800 225 225 Output Total 400 Balance 400 225 225 Intake, Oral 800 225 225 Number 0 0 Bowel Movements Output, Urine 400 Patient 114 lb 125 lb Weight Weight Bed scale Bed scale Measurement Method Physical Exam: gen- NAD at rest ext- RLE is flexed at hip and knee and externally rotated, pt refuses to straighten leg. RLE is warmer than the left. Increased edema on the right, with calf tenderness on the right. Incisions appear clean with no signs of infection Current Medications: Current Medications Sig/Nuris Start time Last Medication Dose Route Stop Time Status Admin Acetaminophen 1,000 MG Q8 PRN 01/10 1530 AC PO Budesonide/ 2 PUF BID 01/09 900 AC 01/13 Formoterol Fumarate INH 1209 Calcium Acetate 1,334 MG WITH MEALS 01/10 800 AC 01/13 PO 1216 Docusate Sodium 100 MG DAILY 01/11 1931 AC 01/13 PO 1211 Epoetin Michael 2,000 UNIT MoWeFr PRN 01/10 0715 AC IV Lorazepam 1 MG TID 01/10 1400 AC 01/12 PO 205 Midodrine 5 MG 01/13 09 AC 01/13 PO 0835 Pantoprazole Sodium 40 MG BID 01/09 915 AC 01/13 IV 1213 Paricalcitol 2.5 MCG MoWeFr PRN 01/10 0715 AC IV Patient Medication 1 ED ONE ONE 01/13 1230 DC 01/13 Teaching ED 01/13 1231 1254 Polyethylene Glycol 17 GM DAILY 01/12 1808 AC 01/13 PO 1211 Senna 187 MG AT BEDTIME 01/12 2100 AC 01/12 PO 2212 Tramadol HCl 50 MG Q6 PRN 01/10 1530 AC 01/12 PO 2011 Trimethobenzamide HCl 200 MG 4 TIMES/DAY PRN 01/09 0915 AC IM Results Last 48 Hours of Labs: Laboratory Tests 01/13 01/12 0600 0600 Chemistry Sodium Cancelled Potassium Cancelled Chloride Cancelled Carbon Dioxide Cancelled Anion Gap Cancelled BUN Cancelled Creatinine Cancelled BUN/Creatinine Ratio Cancelled Hematology CBC w Diff NO MAN DIFF REQ Cancelled WBC (4.8 - 10.8 /CUMM) 8.0 Cancelled RBC (4.20 - 5.40 /CUMM) 2.37 L Cancelled Hgb (12.0 - 16.0 G/DL) 7.7 L Cancelled Hct (37 - 47 %) 22.4 L Cancelled MCV (81.0 - 99.0 FL) 94.8 Cancelled MCH (27.0 - 31.0 PG) 32.4 H Cancelled MCHC (33.0 - 37.0 G/DL) 34.2 Cancelled RDW (11.5 - 14.5 %) 13.4 Cancelled Plt Count (130 - 400 /CUMM) 195 Cancelled MPV (7.4 - 10.4 FL) 9.4 Cancelled Gran % (42.2 - 75.2 %) 76.7 H Lymphocytes % (20.5 - 51.1 %) 12.5 L Monocytes % (1.7 - 9.3 %) 6.6 Eosinophils % (0 - 5 %) 4.0 Basophils % (0.0 - 2.0 %) 0.2 Absolute Granulocytes (1.4 - 6.5 /CUMM) 6.1 Absolute Lymphocytes (1.2 - 3.4 /CUMM) 1.0 L Absolute Monocytes (0.10 - 0.60 /CUMM) 0.5 Absolute Eosinophils (0.0 - 0.7 /CUMM) 0.3 Absolute Basophils (0.0 - 0.2 /CUMM) 0 01/11 193 Hematology CBC w Diff NO MAN DIFF REQ WBC (4.8 - 10.8 /CUMM) 11.5 H RBC (4.20 - 5.40 /CUMM) 3.03 L Hgb (12.0 - 16.0 G/DL) 9.8 L Hct (37 - 47 %) 29.1 L MCV (81.0 - 99.0 FL) 95.9 MCH (27.0 - 31.0 PG) 32.3 H MCHC (33.0 - 37.0 G/DL) 33.6 RDW (11.5 - 14.5 %) 14.3 Plt Count (130 - 400 /CUMM) 205 MPV (7.4 - 10.4 FL) 9.2 Gran % (42.2 - 75.2 %) 78.5 H Lymphocytes % (20.5 - 51.1 %) 13.0 L Monocytes % (1.7 - 9.3 %) 6.8 Eosinophils % (0 - 5 %) 1.1 Basophils % (0.0 - 2.0 %) 0.6 Absolute Granulocytes (1.4 - 6.5 /CUMM) 9.0 H Absolute Lymphocytes (1.2 - 3.4 /CUMM) 1.5 Absolute Monocytes (0.10 - 0.60 /CUMM) 0.8 H Absolute Eosinophils (0.0 - 0.7 /CUMM) 0.1 Absolute Basophils (0.0 - 0.2 /CUMM) 0.1 Assessment/Plan Assessment/Plan 87yo F sp right hip ORIF POD Now with increased RLE pain, edmea and calf tenderness raise concern for DVT. Per Dr. Guallpa request pt was not on pharmacologic anticoagulation, instead ALPS and ambulation for DVT prophylaxis Rec DVT study now. Rec pre-medication with IV analgesic prior to study. Cont daily dry dressing change PT-WBAT Core Measures Venous Thromboembolism VTE Risk Factors Age>40 No Mechanical VTE Prophylaxis d/t N/A MechProphylax Ordered No VTE Pharm Prophylaxis d/t Surgical Contraindication
--- NOTE | 2018-01-13 14:09 | PN- Housestaff ---
See Addendum Subjective Follow-up For: Tibial Plateu fracture S/p ORIF Subjective: Patient seen and examined at bedside. Patient says she is not doing well today, she has not moved her right leg since coming back from dialysis due to pain. Patient states that her pain is worse today. Review of Systems Constitutional: Denies: chills, diaphoresis, fever. EENTM: Denies: visual changes. Cardiovascular: Denies: chest pain, palpitations. Respiratory: Denies: short of breath. Gastrointestinal: Denies: abdominal pain, changes in stool. Objective Last 24 Hrs of Vital Signs/I&O Vital Signs Date Time Temp Pulse Resp B/P B/P Pulse O2 O2 Flow FiO2 Mean Ox Delivery Rate 01/13 0836 Room Air 01/13 0636 98.3 90 18 102/54 95 Room Air 01/12 2208 98.1 98 20 102/60 95 Room Air 01/12 1401 97.4 97 20 100/58 96 Room Air Intake & Output 01/13 1600 01/13 0800 01/13 0000 Intake Total Output Total Balance Patient 114 lb Weight Weight Bed scale Measurement Method Physical Exam General Appearance: Alert, Oriented X3, Cooperative, Moderate Distress Skin: No Rashes HEENT: Atraumatic, EOMI Cardiovascular: Regular Rate, Normal S1, Normal S2 Lungs: Clear to Auscultation, Normal Air Movement Extremities: Right legs looks edematous compared to left, tender to palpation in r. calf. Assessment/Plan Assessment: Ms. Bailey 77-year-old lady with past medical history significant for anxiety, asthma, colon cancer status post resection, diverticulitis, nephrectomy, arthritis and end-stage renal disease on dialysis (M, W, F) presents after sustaining a fall on 01/08/18. Patient underwent R. Hip ORIF with Dr. French. Patient underwent dialysis yesterday. Patient has been working with PT. #R. calf pain Patient currently not on anticoagultion, history of hematemesis. Well's score of 5. H/H has dropped, could be hematoma in right leg vs DVT. plan: - Venous doppler to r/o DVT - GI Consult- in case we need to start heparin #R. Hip fracture s/o ORIF POD #4 R. Hip Xray on 01/09/18 showing comminuted intratrochanteric fracture of the right hip. Fracture is angulated and mildly displaced plan: - tylenol 1000 mg and Tramadol 50mg PO - working with PT, recommend STR - Underwent ORIF with Dr. French Anemia most likely due to ESRD, patient did have initial episode of hematemesis prior to surgery on 01/09/18, patient does not have any symtoms or active bleeding Plan: - continue to monitor daily H/H #ESRD patient is on dialysis M,W,F. 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 GFR = 15, severe CKD plan: - completed dialysis today - followed by nephrology #Leukocytosis - resolved WBC = 17.5. Source unclear most likely related to fall, afebrile, does not take steroids, no signs of infection. Urine culture has no growth after 1 day. DVT PPx: None, per ortho rec's diet: Regular Code: Full code Problem List: 1. Closed right hip fracture Pain Ratin Pain Location: R. Leg Pain Goal: Pain 7 or less Pain Plan: Tylenol Tomorrow's Labs & Rationales: CBC, BEP
[2018-01-13 14:48] VITALS: BP 114/60
--- NOTE | 2018-01-13 15:28 | ULTRASOUND REPORT ---
EXAMINATION: US TRIPLEX LOWER EXTREMITY, RIGHT CLINICAL INFORMATION: right lower extremity edema pain swelling and tenderness COMPARISON: None TECHNIQUE: Color-flow triplex imaging with spectral analysis and compression Doppler were performed on the lower extremity. FINDINGS: Respiratory variation, normal compression and augmented flow are noted throughout the lower extremity. The visualized common femoral vein, superficial femoral vein, profunda femoral vein, popliteal vein and midcalf peroneal and posterior tibial venous segments show no evidence of deep venous thrombosis. 2.2 x 0.9 x 3.7 cm Lizama's cyst is present. IMPRESSION: No evidence of deep venous thrombosis involving the lower extremity.
[2018-01-13 22:27] VITALS: BP 94/50
[2018-01-14 06:20] VITALS: BP 114/58
--- NOTE | 2018-01-14 08:52 | PN- Housestaff ---
See Addendum Subjective Follow-up For: Tibial Plateau fracture s/p ORIF Subjective: Patient seen and examined at bedside, with son in room. No acute events overnight. Afebrile. Patient's son was helping patient straighten her right leg from externally rotated hip and flexed knee position. Patient states her pain is better as compared to yesterday, but still would not prefer to move her right leg. She denies fever, night sweats or chills. Review of Systems Constitutional: Denies: chills, diaphoresis, fever. Cardiovascular: Denies: chest pain, orthopena, palpitations. Respiratory: Denies: cough, hemoptysis, short of breath. Gastrointestinal: Denies: abdominal pain, constipation, diarrhea. Musculoskeletal: Reports: see HPI. Objective Last 24 Hrs of Vital Signs/I&O Vital Signs Date Time Temp Pulse Resp B/P B/P Pulse O2 O2 Flow FiO2 Mean Ox Delivery Rate 01/14 0620 98.2 83 16 114/58 94 Room Air 01/13 2241 Room Air 01/13 2227 98.6 90 14 94/50 96 01/13 1448 98.9 105 20 114/60 95 Intake & Output 01/14 1600 01/14 0800 01/14 0000 Intake Total 240 400 Output Total Balance 240 400 Intake, Oral 240 400 Patient 123 lb 125 lb Weight Weight Bed scale Bed scale Measurement Method Physical Exam General Appearance: Alert, Oriented X3, Cooperative, Mild Distress Skin: No Rashes Sepsis Skin Exam (color): Normal for Ethnicity HEENT: Atraumatic, EOMI Cardiovascular: Normal S1, Normal S2, Tachycardic Lungs: Clear to Auscultation, Normal Air Movement Abdomen: Normal Bowel Sounds, Soft, No Tenderness Extremities: R. Hip covered by dressing, dressing contains sero-sanginous discharge. Warmth, erythema, and induration appreciated around the 2nd set of asa, no discharge appreciated Assessment/Plan Assessment: Ms. Bailey 77-year-old lady with past medical history significant for anxiety, asthma, colon cancer status post resection, diverticulitis, nephrectomy, arthritis and end-stage renal disease on dialysis (M, W, F) presents after sustaining a fall on 01/08/18. Patient underwent R. Hip ORIF with Dr. French. Patient underwent dialysis yesterday. Patient has been working with PT. #R. leg pain Patient currently not on anticoagultion, history of hematemesis. Well's score of 5. H/H has dropped, could be hematoma in right leg vs DVT. Venous Dopper negative for DVT. plan: - Hip X-rays #R. Hip fracture s/o ORIF POD #5 R. Hip Xray on 01/09/18 showing comminuted intratrochanteric fracture of the right hip. Fracture is angulated and mildly displaced plan: - tylenol 1000 mg and Tramadol 50mg PO - working with PT, recommend STR - Underwent ORIF with Dr. French Anemia most likely due to ESRD, patient did have initial episode of hematemesis prior to surgery on 01/09/18, patient does not have any symtoms or active bleeding Plan: - continue to monitor daily H/H #ESRD patient is on dialysis M,W,F. 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 GFR = 15, severe CKD plan: - completed dialysis yesterday - followed by nephrology #Leukocytosis - resolved WBC = 17.5. Source unclear most likely related to fall, afebrile, does not take steroids, no signs of infection. Urine culture has no growth after 1 day. DVT PPx: Heparin diet: Regular Code: Full code Problem List: 1. Closed right hip fracture Pain Ratin Pain Location: R. leg Pain Goal: Pain 4 or less Pain Plan: tylenol and Tramadol Tomorrow's Labs & Rationales: none
--- NOTE | 2018-01-14 11:42 | PN- Orthopedic ---
Subjective Subjective: very quiet, confused at times. refusing to get oob, using michael lift to chair and back. cant/wont bear weight. c/o pain in right leg. keeps rle knee flexed and hip externally trotated when at rest in bed, though fairly straight and extended in chair now. not eating "not hungry". very sleepy. not herself per family Objective Vital Signs and I&Os Vital Signs Date Time Temp Pulse Resp B/P B/P Pulse O2 O2 Flow FiO2 Mean Ox Delivery Rate 01/15 620 98.2 83 16 114/58 94 Room Air 01/13 2241 Room Air 01/13 2227 98.6 90 14 94/50 96 01/13 1448 98.9 105 20 114/60 95 Intake & Output 01/14 0800 01/14 0000 01/13 1600 01/13 0800 01/13 0000 Intake Total 240 400 Output Total Balance 240 400 Intake, Oral 240 400 Patient 123 lb 125 lb 114 lb Weight Weight Bed scale Bed scale Bed scale Measurement Method Physical Exam: gen- sleepy in chair, nad card- s1s2 pulm- ctab abd- distended, nt ext- right hip dressing w sersang drainage, underlayer removed. staplelines clean and intact. some ecchymosis, +edema, ttp, no erythema. posterior thigh not examined as pt in chair. calves soft nt. palp pedal pulses. feet warm, gross sensation intact. limited strenght bl le Results Last 48 Hours of Labs: Laboratory Tests 01/13 600 Hematology CBC w Diff NO MAN DIFF REQ WBC (4.8 - 10.8 /CUMM) 8.0 RBC (4.20 - 5.40 /CUMM) 2.37 L Hgb (12.0 - 16.0 G/DL) 7.7 L Hct (37 - 47 %) 22.4 L MCV (81.0 - 99.0 FL) 94.8 MCH (27.0 - 31.0 PG) 32.4 H MCHC (33.0 - 37.0 G/DL) 34.2 RDW (11.5 - 14.5 %) 13.4 Plt Count (130 - 400 /CUMM) 195 MPV (7.4 - 10.4 FL) 9.4 Gran % (42.2 - 75.2 %) 76.7 H Lymphocytes % (20.5 - 51.1 %) 12.5 L Monocytes % (1.7 - 9.3 %) 6.6 Eosinophils % (0 - 5 %) 4.0 Basophils % (0.0 - 2.0 %) 0.2 Absolute Granulocytes (1.4 - 6.5 /CUMM) 6.1 Absolute Lymphocytes (1.2 - 3.4 /CUMM) 1.0 L Absolute Monocytes (0.10 - 0.60 /CUMM) 0.5 Absolute Eosinophils (0.0 - 0.7 /CUMM) 0.3 Absolute Basophils (0.0 - 0.2 /CUMM) 0 Assessment/Plan Assessment/Plan A- POD5 sp r hip orif, with inability to bear weight, limited oob postop, hct 22 - acute blood loss anemia r/t surgery, with noninfectious wound drainage. P- -stat cbc, lytes. may require transfusion -stat r hip xrays to evaluate hip alignment -needs pharm anticoag as not ambulating- hep sq per dr. jhaveri -lizz jhavrei who will be in this pm to see pt. -lizz patient and family present -will lizz medical team
[2018-01-14 13:01] LABS: ABSOLUTE BASOPHIL COUNT 0 /CUMM (0.0-0.2); ABSOLUTE EOSINOPHIL COUNT 0.2 /CUMM (0.0-0.7); ABSOLUTE GRANULOCYTE CT 7.4 /CUMM (1.4-6.5); ABSOLUTE LYMPH COUNT 0.8 /CUMM (1.2-3.4); ABSOLUTE MONOCYTE COUNT 0.7 /CUMM (0.10-0.60); BASOPHIL % 0.3 % (0.0-2.0); EOSINOPHIL % 1.8 % (0-5); GRANULOCYTE % 81.2 % (42.2-75.2); HEMATOCRIT 24.8 % (37-47); MEAN CORPUSCULAR HGB 32.6 PG (27.0-31.0); MEAN CORPUSCULAR HGB CONC 34.3 G/DL (33.0-37.0); MEAN CORPUSCULAR VOLUME 94.8 FL (81.0-99.0); MEAN PLATELET VOLUME 9.4 FL (7.4-10.4); PLATELET COUNT 233 /CUMM (130-400); RBC DISTRIBUTION WIDTH 13.6 % (11.5-14.5); RED BLOOD CELL CT 2.61 /CUMM (4.20-5.40); WHITE BLOOD CELL COUNT 9.1 /CUMM (4.8-10.8)
[2018-01-14 14:54] VITALS: BP 100/60
--- NOTE | 2018-01-14 15:05 | RADIOLOGY REPORT ---
EXAMINATION: XR HIP, RIGHT CLINICAL INFORMATION: Postoperative day 5, status post ORIF right hip. Patient with pain and inability to weight-bear. COMPARISON: None TECHNIQUE: Two views of the right hip. FINDINGS: The patient is status post open reduction and internal fixation of a prior complex intertrochanteric fracture. Hardware is in place and in satisfactory position. No dislocation is seen. A residual portion of the fracture is visible medially near the lesser trochanter. Regional soft tissue swelling and minimal subcutaneous gas noted. IMPRESSION: Postoperative changes, status post open reduction and internal fixation of a right intertrochanteric hip fracture. Normal appearance of hardware. Small fracture fragments visible at the level of the lesser trochanter.
[2018-01-14 21:32] VITALS: BP 110/54
[2018-01-15 05:51] VITALS: BP 116/80
[2018-01-15 08:23] LABS: ABSOLUTE BASOPHIL COUNT 0 /CUMM (0.0-0.2); ABSOLUTE EOSINOPHIL COUNT 0.1 /CUMM (0.0-0.7); ABSOLUTE GRANULOCYTE CT 6.1 /CUMM (1.4-6.5); ABSOLUTE LYMPH COUNT 0.8 /CUMM (1.2-3.4); ABSOLUTE MONOCYTE COUNT 0.6 /CUMM (0.10-0.60); BASOPHIL % 0.5 % (0.0-2.0); EOSINOPHIL % 1.5 % (0-5); GRANULOCYTE % 79.9 % (42.2-75.2); MEAN CORPUSCULAR HGB 32.2 PG (27.0-31.0); MEAN CORPUSCULAR HGB CONC 33.7 G/DL (33.0-37.0); MEAN CORPUSCULAR VOLUME 95.5 FL (81.0-99.0); PLATELET COUNT 205 /CUMM (130-400); RBC DISTRIBUTION WIDTH 13.7 % (11.5-14.5); RED BLOOD CELL CT 2.31 /CUMM (4.20-5.40); WHITE BLOOD CELL COUNT 7.6 /CUMM (4.8-10.8)
--- NOTE | 2018-01-15 08:39 | PN- Orthopedic ---
Surgical Brief Attending Note Brief Attending Note: Patient seen by Dr. French for routine inpatient postoperative followup on 04/2018 @ 06:30 PM: Sasha Bailey is an 87 year old WF with ESRD on TIW HD who was a cane-walker household and more limited outdoor ambulator prior to a fall and is now POD #5 from right hip region closed reduction and minimally invasive open cephalomedullary nail internal fixation for displaced high subtrochanteric fracture (01/09/2018, [facility]). She did well initially but is now hypersomnolent and c/o severe pain with hip motion. She has not had pain medication since this AM by nursing report. She feels unable but is mostly unwilling to mobilize with PT or even with in-bed exercises and exam. She is afebrile. Her preoperative leukocytosis has resolved. She has evidence of a large thigh hematoma with ecchymosis extending down to the distal thigh and associated anemia (HCT = 24 decreased from 35 on admission). She is getting stiff from immobility but has at least been compliant with PT and Kate lift to chair until today when she refused mobilization. On examination she is somnolent but arousable and appropriately responsive but then falls back to sleep almost immediately after being stimulated. There is a small amount of serosanguinous drainage on the dressing which I am told by nursing is decreasing steadily. The incisions appear CD+I with no drainage expressible on light to intermediate intensity palpation and with pressure gently directed toward the incision. Significant ecchymosis consistent with fracture, large fracture hematoma and suggestive of equally significant soft tissue injury from original trauma. She is NVI distally. She can bend the hip and knee to an intermediate degree with encouragement. When passively mobilized she has smooth and fairly good range in both the hip and knee but initially reports significant pain which seems to decrease as the is repeated. Postop radiographs (01/14/2018) show hardware in good position and with good fixation. Fracture is well aligned and well fixed. No lesions or other abnormalities. Patient does complain of pain closer to the knee and this area is not visualized on these radiographs. Although unlikely to show anything different than preop studies, it may be indicated to repeat radiographs from the midshaft of the femur (distal end of the nail) down to the knee if she does not improve over the next 24-48 hours. Hypersomnolence without clear cause other than anemia in elderly patient with multiple medical conditions and significant ESRD. Hematoma Anemia Post-op pain limiting mobilization Recommendations: Transfuse to HCT > 30. H/H qD (full CBC only if remains hypersomnolent after transfusion). Mobilize with PT In-bed exercises and hip ROM (active first by patient and then active-assisted/ passive by PT/nurse/family) at [facility] 3-5 times per day. OOB to chair tid for minimum of 20 minutes and up to 2 hours (or more is well tolerated) each time. At least attempt to sit at side of bed, stand (with as much R WB as patient can tolerate) and pivot to chair with FWB on left and WBAT on right each time. Sliding transfer can be trialed with PT. Kate lift if not able to transfer otherwise. Would see how patient does after transfusion and with PT/mobilization throughout the day. If she is at least more awake and tolerates mobilization better then may consider D/C later today or in AM tomorrow. If no progress by mid-afternonn and still c/o a significant component of distal thigh pain then would obtain radiographs of the distal thigh to include the end of the nail down through the knee (to the proximal tibia). Agree with [facility] anticoagulation at this point along with mechanical prophylaxis until patient is better able to mobilize.
[2018-01-15 08:41] LABS: ABSOLUTE BASOPHIL COUNT 0 /CUMM (0.0-0.2); ABSOLUTE EOSINOPHIL COUNT 0.1 /CUMM (0.0-0.7); ABSOLUTE LYMPH COUNT 0.8 /CUMM (1.2-3.4); ABSOLUTE MONOCYTE COUNT 0.6 /CUMM (0.10-0.60); BASOPHIL % 0.5 % (0.0-2.0); EOSINOPHIL % 1.5 % (0-5); GRANULOCYTE % 79.8 % (42.2-75.2); HEMATOCRIT 22.2 % (37-47); MEAN CORPUSCULAR HGB 32.2 PG (27.0-31.0); MEAN CORPUSCULAR HGB CONC 33.5 G/DL (33.0-37.0); MEAN CORPUSCULAR VOLUME 96.1 FL (81.0-99.0); MEAN PLATELET VOLUME 9.2 FL (7.4-10.4); PLATELET COUNT 199 /CUMM (130-400); RBC DISTRIBUTION WIDTH 14.1 % (11.5-14.5); RED BLOOD CELL CT 2.31 /CUMM (4.20-5.40); WHITE BLOOD CELL COUNT 7.5 /CUMM (4.8-10.8)
--- NOTE | 2018-01-15 12:07 | PN- Nephrology ---
Assessment/Plan Nephrology Assessment: 1. ESRD 2. Hypercalcemia 3. Fractured right hip --> ORIF on 01/09 Suggestion: 1. Hemodialysis today in progress with ultrafiltration to target weight as tolerated using midodrine for blood pressure support 2. Hold Zemplar and decrease calcium acetate to 1 cap 3 times daily with meals 3. Management of post ORIF per orthopedic mara 4. If patient to be transfused, best to do so during her dialysis sessions 5. Next hemodialysis after today for Wednesday 01/17 Subjective Subjective: Seen with hemodialysis. Patient appears to be comfortable but complains of persistent discomfort in right hip and right lower extremity with any movement. Orthopedic note reviewed. Objective Vital Signs and I&Os Vital Signs Date Time Temp Pulse Resp B/P B/P Pulse O2 O2 Flow FiO2 Mean Ox Delivery Rate 01/15 1051 Room Air 01/15 0551 98.3 95 20 116/80 96 Room Air 01/14 2132 98.9 92 18 110/54 96 01/14 1454 98.2 85 18 100/60 95 Room Air Intake & Output 01/15 1600 01/15 0400 01/14 1600 01/14 0400 01/13 1600 01/13 0400 Intake Total 045 780 9444 400 Output Total Balance 041 937 5007 400 Intake, Oral 816 605 3109 400 Number 1 1 Bowel Movements Patient 125 lb 123 lb 125 lb 114 lb Weight Weight Bed scale Bed scale Bed scale Measurement Method Physical Exam: General: Well-developed, elderly white female in NAD Skin: No rash or jaundice HEENT: Conjunctivae pale, sclerae anicteric, mucous membranes moist Neck: Without masses or thyromegaly, no supraclavicular or cervical adenopathy Chest: Clear to P&A Heart: Regular rate and rhythm without S3 or rub Abdomen: Soft and nontender without palpable masses or organomegaly Extremities: Without cyanosis or edema Neuro: Cognitively intact, no focal findings, no asterixis or myoclonus Current Medications: Current Medications Sig/Nuris Start time Last Medication Dose Route Stop Time Status Admin Acetaminophen 1,000 MG Q8 PRN 01/10 1530 AC 01/13 PO 2203 Budesonide/ 2 PUF BID 01/09 09 AC 01/14 Formoterol Fumarate INH 2035 Calcium Acetate 1,334 MG WITH MEALS 01/09 08 AC 01/14 PO 1757 Docusate Sodium 100 MG DAILY 01/11 1931 AC 01/14 PO 1000 Epoetin Michael 2,000 UNIT MoWeFr PRN 01/10 0715 AC IV Heparin Sodium 5,000 UNIT Q8 01/14 1230 AC 01/15 (Porcine) SC 0516 Lorazepam 1 MG TID 01/10 1400 AC 01/14 PO 203 Midodrine 5 MG 01/13 0900 AC 01/15 PO 0831 Omeprazole 40 MG 1/2H B/BREAKF/DINNER 01/15 1630 AC PO Pantoprazole Sodium 40 MG BID 01/09 0915 DC 01/14 IV 203 Paricalcitol 2.5 MCG MoWeFr PRN 01/10 0715 AC IV Polyethylene Glycol 17 GM DAILY 01/12 1808 AC 01/14 PO 1000 Senna 187 MG AT BEDTIME 01/12 2100 AC 01/14 PO 203 Tramadol HCl 50 MG Q6 PRN 01/10 1530 AC 01/15 PO 0521 Trimethobenzamide HCl 200 MG 4 TIMES/DAY PRN 01/09 09 AC IM Results Pertinent Lab Results: Laboratory Tests 01/15 01/15 0802 0731 Chemistry Sodium (137 - 145 mmol/L) 135 L Potassium (3.5 - 5.1 mmol/L) 4.3 Chloride (98 - 107 mmol/L) 98 Carbon Dioxide (22 - 30 mmol/L) 32 H Anion Gap (5 - 16) 5 BUN (7 - 17 mg/dL) 39 H Creatinine (0.5 - 1.0 mg/dL) 4.7 H Estimated GFR (>60 ml/min) 9 L BUN/Creatinine Ratio (7 - 25 %) 8.3 Calcium (8.4 - 10.2 mg/dL) 11.0 H Phosphorus (2.5 - 4.5 mg/dL) 4.7 H Magnesium (1.6 - 2.3 mg/dL) 2.3 Albumin (3.5 - 5.0 g/dL) 2.2 L Hematology CBC w Diff NO MAN DIFF REQ NO MAN DIFF REQ WBC (4.8 - 10.8 /CUMM) 7.6 7.5 RBC (4.20 - 5.40 /CUMM) 2.31 L 2.31 L Hgb (12.0 - 16.0 G/DL) 7.4 *L 7.4 *L Hct (37 - 47 %) 22.0 L 22.2 L MCV (81.0 - 99.0 FL) 95.5 96.1 MCH (27.0 - 31.0 PG) 32.2 H 32.2 H MCHC (33.0 - 37.0 G/DL) 33.7 33.5 RDW (11.5 - 14.5 %) 13.7 14.1 Plt Count (130 - 400 /CUMM) 205 199 MPV (7.4 - 10.4 FL) 9.0 9.2 Gran % (42.2 - 75.2 %) 79.9 H 79.8 H Lymphocytes % (20.5 - 51.1 %) 10.9 L 10.4 L Monocytes % (1.7 - 9.3 %) 7.2 7.8 Eosinophils % (0 - 5 %) 1.5 1.5 Basophils % (0.0 - 2.0 %) 0.5 0.5 Absolute Granulocytes (1.4 - 6.5 /CUMM) 6.1 6.0 Absolute Lymphocytes (1.2 - 3.4 /CUMM) 0.8 L 0.8 L Absolute Monocytes (0.10 - 0.60 /CUMM) 0.6 0.6 Absolute Eosinophils (0.0 - 0.7 /CUMM) 0.1 0.1 Absolute Basophils (0.0 - 0.2 /CUMM) 0 0 07/10 / 1219 0600 Chemistry Sodium (137 - 145 mmol/L) 137 Potassium (3.5 - 5.1 mmol/L) 4.1 Chloride (98 - 107 mmol/L) 98 Carbon Dioxide (22 - 30 mmol/L) 26 Anion Gap (5 - 16) 13 BUN (7 - 17 mg/dL) 27 H Creatinine (0.5 - 1.0 mg/dL) 3.8 H Estimated GFR (>60 ml/min) 11 L BUN/Creatinine Ratio (7 - 25 %) 7.1 Hematology CBC w Diff NO MAN DIFF REQ NO MAN DIFF REQ WBC (4.8 - 10.8 /CUMM) 9.1 8.0 RBC (4.20 - 5.40 /CUMM) 2.61 L 2.37 L Hgb (12.0 - 16.0 G/DL) 8.5 L 7.7 L Hct (37 - 47 %) 24.8 L 22.4 L MCV (81.0 - 99.0 FL) 94.8 94.8 MCH (27.0 - 31.0 PG) 32.6 H 32.4 H MCHC (33.0 - 37.0 G/DL) 34.3 34.2 RDW (11.5 - 14.5 %) 13.6 13.4 Plt Count (130 - 400 /CUMM) 233 195 MPV (7.4 - 10.4 FL) 9.4 9.4 Gran % (42.2 - 75.2 %) 81.2 H 76.7 H Lymphocytes % (20.5 - 51.1 %) 8.7 L 12.5 L Monocytes % (1.7 - 9.3 %) 8.0 6.6 Eosinophils % (0 - 5 %) 1.8 4.0 Basophils % (0.0 - 2.0 %) 0.3 0.2 Absolute Granulocytes (1.4 - 6.5 /CUMM) 7.4 H 6.1 Absolute Lymphocytes (1.2 - 3.4 /CUMM) 0.8 L 1.0 L Absolute Monocytes (0.10 - 0.60 /CUMM) 0.7 H 0.5 Absolute Eosinophils (0.0 - 0.7 /CUMM) 0.2 0.3 Absolute Basophils (0.0 - 0.2 /CUMM) 0 0
[2018-01-15 13:55] VITALS: BP 110/75
[2018-01-15] MEDS ORDERED: CALCIUM ACETAT667 M3 PO (15:43)
[2018-01-15 17:48] VITALS: BP 110/75
--- NOTE | 2018-01-15 22:07 | PN- Att Addend ---
Attending Addendum Attending Brief Note S: The patient was improved today with decreased anxiety and pain. Able to do some therapy. Had bowel movement post suppository yesterday. No chest pain or dyspnea. Was seen in dialysis with case management. O: VS: Vital Signs Date Time Temp Pulse Resp B/P B/P Pulse O2 O2 Flow FiO2 Mean Ox Delivery Rate 01/15 1748 98.9 87 20 110/75 01/15 1355 98.9 87 20 110/75 90 Room Air 01/15 1051 Room Air 01/15 0551 98.3 95 20 116/80 96 Room Air Intake & Output 01/15 1600 01/15 0800 01/15 0000 Intake Total 170 120 360 Output Total Balance 170 120 360 Intake, IV 10 Intake, Oral 160 120 360 Number 1 Bowel Movements Patient 125 lb Weight Current Medications Sig/Nuris Start time Last Medication Dose Route Stop Time Status Admin Acetaminophen 1,000 MG Q8 PRN 01/10 1530 DCD 01/15 PO 1552 Budesonide/ 2 PUF BID 01/09 09 DCD 01/15 Formoterol Fumarate INH 1252 Calcium Acetate 667 MG WITH MEALS 01/15 1700 DCD 01/15 PO 1755 Calcium Acetate 1,334 MG WITH MEALS 01/09 0800 DC 01/14 PO 1757 Docusate Sodium 100 MG DAILY 01/11 1931 DCD 01/15 PO 1244 Epoetin Michael 2,000 UNIT MoWeFr PRN 01/10 0715 DCD IV Heparin Sodium 5,000 UNIT Q8 01/14 1230 DCD 01/15 (Porcine) SC 1430 Lorazepam 0.5 MG TID PRN 01/15 1654 DCD PO 01/17 1359 Lorazepam 1 MG TID 01/10 1400 DC 01/15 PO 1250 Midodrine 5 MG 01/13 0900 DCD 01/15 PO 0831 Omeprazole 40 MG 1/2H B/BREAKF/DINNER 01/15 1630 DCD 01/15 PO 1551 Pantoprazole Sodium 40 MG BID 01/09 0915 DC 01/14 IV 2034 Paricalcitol 2.5 MCG MoWeFr PRN 01/10 0715 DC IV Polyethylene Glycol 17 GM DAILY 01/12 1808 DCD 01/15 PO 1251 Senna 187 MG AT BEDTIME 01/12 2100 DCD 01/14 PO 2034 Tramadol HCl 50 MG Q6 PRN 01/10 1530 DCD 01/15 PO 520 Trimethobenzamide HCl 200 MG 4 TIMES/DAY PRN 01/09 915 DCD IM HEENT: sreedhar- moist mucosa Neck: no adenopathy, bruits Chest: clear Cor: RRR nl S1, S2 Abd: BS+, soft, NT Ext: - s/p ORIF right hip, no edema Labs/Tests: Laboratory Tests 01/15/18 1130: 01/15/18 0802: Anion Gap 5, Estimated GFR 9 L, BUN/Creatinine Ratio 8.3, Calcium 11.0 H, Phosphorus 4.7 H, Magnesium 2.3, Albumin 2.2 L, CBC w Diff NO MAN DIFF REQ, RBC 2.31 L, MCV 95.5, MCH 32.2 H, MCHC 33.7, RDW 13.7, MPV 9.0, Gran % 79.9 H , Lymphocytes % 10.9 L, Monocytes % 7.2, Eosinophils % 1.5, Basophils % 0.5, Absolute Granulocytes 6.1, Absolute Lymphocytes 0.8 L, Absolute Monocytes 0.6, Absolute Eosinophils 0.1, Absolute Basophils 0 01/15/18 0731: CBC w Diff NO MAN DIFF REQ, RBC 2.31 L, MCV 96.1, MCH 32.2 H, MCHC 33.5, RDW 14.1, MPV 9.2, Gran % 79.8 H, Lymphocytes % 10.4 L, Monocytes % 7.8, Eosinophils % 1.5, Basophils % 0.5, Absolute Granulocytes 6.0, Absolute Lymphocytes 0.8 L, Absolute Monocytes 0.6, Absolute Eosinophils 0.1, Absolute Basophils 0 01/14/18 1219: Anion Gap 13, Estimated GFR 11 L, BUN/Creatinine Ratio 7.1, CBC w Diff NO MAN DIFF REQ, RBC 2.61 L, MCV 94.8, MCH 32.6 H, MCHC 34.3, RDW 13.6, MPV 9.4, Gran % 81.2 H, Lymphocytes % 8.7 L, Monocytes % 8.0, Eosinophils % 1.8, Basophils % 0.3, Absolute Granulocytes 7.4 H, Absolute Lymphocytes 0.8 L, Absolute Monocytes 0.7 H, Absolute Eosinophils 0.2, Absolute Basophils 0 01/13/18 0600: CBC w Diff NO MAN DIFF REQ, RBC 2.37 L, MCV 94.8, MCH 32.4 H, MCHC 34.2, RDW 13.4, MPV 9.4, Gran % 76.7 H, Lymphocytes % 12.5 L, Monocytes % 6.6, Eosinophils % 4.0, Basophils % 0.2, Absolute Granulocytes 6.1, Absolute Lymphocytes 1.0 L, Absolute Monocytes 0.5, Absolute Eosinophils 0.3, Absolute Basophils 0 Impression/Plan: #S/P Hip Fracture- and ORIF. Doing better today. Appreciate Orthopedic follow- up. Plan: Continue therapy. STR today. #Acute and Chronic Anemia- some blood loss due to fracture and surgery as well as some UGI bleeding (initial coffee ground heme + emesis). Plan: Will transfuse 1 unit PRBC prior to discharge to STR (Ritika). Follow-up H/H with next dialysis 01/17. #ESRD- on dialysis. Dialyzed today. Plan: Continue dialysis qMWF as OP. #UGI Bleeding- had episode of coffee ground heme + emesis prior to surgery. Plan: Will discharge on bid PPI (Omeprazole) and follow stool for blood. Should have GI evaluation as OP once recovered.
== END 2018-01-15 18:41 | DRG 480 ==
LOC: ERH 01:13 → 2NA 03:27 → ERHI 03:27 → ENRESERV 04:25 → 2NA 05:32 → ENTRNSPT 12:47 → EDTRNSPT 12:57 → EDTRNSPTSTS 12:57 → CMPTRNSPT 13:26 → 2NA 01-15 18:41
PROVIDERS: Internal Medicine; Internal Medicine Nephrology; Pediatrics; Physician Assistant Surgical
PROC: 0QS604Z Reposition Right Upper Femur with Internal Fixation Device, Open Approach (ICD-10-PCS; principal; 2018-01-09)
PROC: 30233N1 Transfusion of Nonautologous Red Blood Cells into Peripheral Vein, Percutaneous Approach (ICD-10-PCS; 2018-01-15)
DX: S72.141A Displaced intertrochanteric fracture of right femur, initial encounter for closed fracture (principal); N18.6 End stage renal disease; D62 Acute posthemorrhagic anemia; K92.2 Gastrointestinal hemorrhage, unspecified; S72.21XA Displaced subtrochanteric fracture of right femur, initial encounter for closed fracture; F41.9 Anxiety disorder, unspecified; J45.909 Unspecified asthma, uncomplicated; E83.52 Hypercalcemia; Z99.2 Dependence on renal dialysis; Z91.048 Other nonmedicinal substance allergy status; D72.829 Elevated white blood cell count, unspecified; W19.XXXA Unspecified fall, initial encounter; Y92.89 Other specified places as the place of occurrence of the external cause; Z90.5 Acquired absence of kidney; Z85.038 Personal history of other malignant neoplasm of large intestine
CPT/HCPCS: 2NAP; 36415; 36592; 71045; 73502-RT; 73562-RT; 82436; 86920; 87086; 93005; 93010; 96374; 97110-GO; 97112-GO; 97116-GO; 97161-GP; 97530-GO; C1713; J0131; J0690; J0885; J1644; J2405; J2501; J3250; J3490; P9016